=== PATIENT | male | born 1940 | race Caucasian/White ===

== ENCOUNTER 2018-08-03 23:01 | Inpatient (IN) | payer OTHER ==
[~2018-08-03] VITALS: Ht 172.7 cm; Wt 77.6 kg
[~2018-08-03 23:01] MED LIST: DUONEB3 ML HHN; PREDNISONE10 M2 PO; Z.0.ASPIR 8181 MG PO; Z.0.COREG3.125 MG PO; Z.0.LIPITOR10 MG PO; Z.0.PLAVIX75 MG PO; Z.0.TOPROL XL25 MG PO; Z.0.VASOTEC5 MG PO; [UNRECOGNIZED DRUG - REMARK]
--- OUTSIDE RECORDS SUMMARY | 2018-08-03 23:04 | XMS REPORT | Summary of Care ---
Author Author [facility] [place] Organization [facility] [place] Address Unknown Phone Unavailable Encounter HQ Barbarantr_aliney(FIN) [id number] Date(s): 12/06/17 - 12/06/17 [facility] [place] [address] [address]- [phone] Encounter Diagnosis Shortness of breath (Final) - 12/10/17 Discharge Disposition: Home or Self Care Attending Physician: Tom Smith MD Vital Signs No data available for this section Problem List Condition Effective Dates Status Health Status Informant Angina(Confirmed) Active Chronic systolic Active heart failure(Confirmed) Hypercholesteremia(C Active onfirmed) SOB (shortness of Active breath) on exertion(Confirmed) Allergies, Adverse Reactions, Alerts Substance Reaction Severity Status NKDA Active Medications No data available for this section Results No data available for this section Immunizations No data available for this section Procedures Procedure Date Related Diagnosis Body Site Status Appendectomy Completed CABG x 3 - Coronary artery bypass grafts x 3 Completed Carotid endarterectomy Completed Implantation of cardiac pacemaker Completed Social History Social History Type Response Alcohol Current, Type Beer. Frequency: 1-2 times per month. Previous treatment: None. Alcohol use interferes with work or home: No. Drinks more than intended: No. Others hurt by drinking: No. Ready to change: No. Household alcohol concerns: No. Smoking Status Former smoker; Type: Cigarettes; Exposure to Tobacco Smoke None; Cigarette Smoking Last 365 Days Yes; Reg Smoking Cessation Counseling No; Other Tobacco Frequency Pt. quit 10/07/17. OBEY Ramirez; entered on: 02/21/18 Assessment and Plan No data available for this section
--- OUTSIDE RECORDS SUMMARY | 2018-08-03 23:04 | XMS REPORT | Continuity of Care Document ---
Author Author [facility] Interface Address Unknown Phone Unavailable Problems Problem Status Onset Date Classification Date Reported Comments Source AV NODE ABLATION Active 02/08/2018 [facility] UNK Active 01/18/2018 [facility] Shortness of breath 12/11/2017 03/14/2018 [facility] [place] K52.9 - NONINFECTIVE GASTROENTERITIS A Active 11/12/2016 [facility] [place] 428.22/426.52/414.02 Active 05/30/2014 [facility] Angina Active Problem 03/14/2018 [facility] Chronic systolic heart failure Active Problem 03/14/2018 [facility] Hypercholesteremia Active Problem 03/14/2018 [facility] SOB on exertion(<span ID="[id number]">Confirmed</span>) Active Problem 03/14/2018 [facility] Medications Medication Details Route Status Patient Instructions Ordering Provider Order Date Source atorvastatin 10 mg, PO, Daily, 0 Refill(s) Active 02/21/2018 [facility] atorvastatin 10 mg oral tablet 10 mg=1 tab, PO, Daily, 0 Refill(s) Inactive 02/21/2018 [facility] Allergies, Adverse Reactions, Alerts Substance Category Reaction Severity Reaction type Status Date Reported Comments Source Immunizations Immunization Date Given Site Status Last Updated Comments Source Results Order Name Results Value Reference Range Date Interpretation Comments Source ELECTROLYTES AGAP 14.8 meq/L 10.0 - 20.0 02/18/2018 [facility] ELECTROLYTES eGFR 33 mL/min/1.73m2 02/18/2018 Result Comment: The eGFR is calculated using the CKD-EPI formula. In most young, healthy individuals the eGFR will be >90 mL/min/1.73m2. The eGFR declines with age. An eGFR of 60-89 may be normal in some populations, particularly the elderly, for whom the CKD-EPI formula has not been extensively validated. Use of the eGFR is not recommended in the following populations: Individuals with unstable creatinine concentrations, including patients and those with serious co-morbid conditions. Patients with extremes in muscle mass or diet. The data above are obtained from the National Kidney Disease Education Program (NKDEP) which additionally recommends that when the eGFR is used in patients with extremes of body mass index for purposes of drug dosing, the eGFR should be multiplied by the estimated BMI. [facility] ELECTROLYTES Glucose Lvl 112 mg/dL 70 - 99 02/18/2018 [facility] ELECTROLYTES CO2 28 meq/L 24 - 32 02/18/2018 [facility] ELECTROLYTES Chloride Lvl 98 meq/L 95 - 109 02/18/2018 [facility] ELECTROLYTES Creatinine Lvl 1.91 mg/dL 0.50 - 1.40 02/18/2018 [facility] ELECTROLYTES BUN 29 mg/dL 7 - 22 02/18/2018 [facility] ELECTROLYTES Potassium Lvl 3.8 meq/L 3.5 - 5.1 02/18/2018 [facility] ELECTROLYTES Sodium Lvl 137 meq/L 135 - 145 02/18/2018 [facility] ELECTROLYTES Calcium Lvl 9.2 mg/dL 8.5 - 10.5 02/18/[address] [facility] WBC 7.3 K/CMM 3.7 - 10.4 02/18/[address] [facility] MCV 89.0 fL 80.0 - 94.0 02/18/[address] [facility] RBC 4.13 M/CMM 4.70 - 6.10 02/18/[address] [facility] Hct 36.8 % 42.0 - 54.0 02/18/[address] [facility] Hgb 12.2 g/dL 14.0 - 18.0 02/18/[address] [facility] MPV 7.9 fL 7.4 - 10.4 02/18/[address] [facility] Platelet 156 K/CMM 133 - 450 02/18/[address] [facility] MCH 29.5 pg 27.0 - 31.0 02/18/[address] [facility] RDW 18.6 % 11.5 - 14.5 02/18/[address] [facility] MCHC 33.1 g/dL 32.0 - 36.0 02/18/[address] [facility] PTT 33.3 s 22.9 - 35.8 02/18/[address] [facility] PT 15.7 s 12.0 - 14.7 02/18/[address] [facility] INR 1.24 0.85 - 1.17 02/18/[address] [facility] Monocytes # 0.8 K/CMM 0.0 - 0.8 02/18/2018 [facility] HEMATOLOGY Eosinophils # 0.1 K/CMM 0.0 - 0.5 02/18/[address] [facility] Basophils # 0.1 K/CMM 0.0 - 0.2 02/18/2018 [facility] HEMATOLOGY Lymphocytes # 1.9 K/CMM 1.0 - 5.5 02/18/[address] [facility] Basophils 1.0 % 0.0 - 1.0 02/18/[address] [facility] Segs-Bands # 4.5 K/CMM 1.5 - 8.1 02/18/[address] [facility] Monocytes 10.4 % 2.0 - 12.0 02/18/[address] [facility] Eosinophils 1.2 % 0.0 - 4.0 02/18/[address] [facility] Lymphocytes 25.7 % 20.0 - 40.0 02/18/[address] [facility] Segs 61.7 % 45.0 - 75.0 02/18/2018 [facility] Chest 2 views DX Chest 2 views DX EXAM: Chest 2 views DX HISTORY: - R06.02 Shortness of breath COMPARISON: 06/08/2014 There are increased interstitial markings in the lung bases. No dense consolidation, effusion or pneumothorax. Cardiomegaly with pacing leads, median sternotomy and CABG again noted. No acute osseous lesion. IMPRESSION: Since 2013, there has been development of increased interstitial markings in the lung bases which could indicate developing interstitial lung disease. Consider pulmonary function tests and high-resolution chest CT for further evaluation if clinically appropriate. 12/06/2017 - - Read by: Zena Mendoza MD Dictated Date/time: 12/06/17 14:36 Electronically Signed by: Zena Mendoza MD 12/06/17 14:37 FINAL REPORT [facility] [place] Spine lumbar 2 or 3 views DX Spine lumbar 2 or 3 views DX CLINICAL HISTORY: - M47.817 Spondylosis without myelopathy or radiculopathy, lumbosacral region AGE: 76 years GENDER: Male TECHNIQUE: Lumbar spine radiographs, 2 views. COMPARISON: None FINDINGS: The L1 vertebral body is defined as the first non-rib bearing lumbar type vertebral body. There are 5 lumbar type vertebral bodies. There is grade 1 anterolisthesis of L5 on S1.. There is moderate to severe degenerative disc disease in the lumbar spine, at L4-L5 and L5-S1.. Suspected severe facet arthropathy in the lower lumbar spine. Vascular calcification is seen in the abdominal aorta. IMPRESSION: Moderate degenerative disc disease in the lower lumbar spine, worst at L4-L5. Grade 1 anterolisthesis of L5 on S1. 04/08/2017 - - Read by: Watson Fletcher MD Dictated Date/time: 04/08/17 18:42 Electronically Signed by: Watson Fletcher MD 04/08/17 18:43 FINAL REPORT EVIE Espinoza Spine sacrum AP/Lat DX Spine sacrum AP/Lat DX CLINICAL HISTORY: - M47.817 Spondylosis without myelopathy or radiculopathy, lumbosacral region AGE: 76 years GENDER: Male TECHNIQUE: Sacrum radiographs, 2 views. COMPARISON: None FINDINGS: No evidence of sacral fracture. No significant sacroiliac joint fusion, or erosion. Mild subchondral sclerosis is seen in the left SI joint. Surgical clips project over the right groin. IMPRESSION: Mild degenerative changes in the left sacroiliac joint. No evidence of sacral fracture. 04/08/2017 - - Read by: Watson Fletcher MD Dictated Date/time: 04/08/17 18:38 Electronically Signed by: Watson Fletcher MD 04/08/17 18:40 FINAL REPORT EVIE Espinoza Abdomen/Pelvis w IV contrast CT Abdomen/Pelvis w IV contrast CT EXAM: CT ABDOMEN AND PELVIS WITH CONTRAST DATE:11/19/2016 9:09 AM LAB REP . ADDITIONAL DATA: None COMPARISON: None Dose: DLP 1281 mGy-cm TECHNIQUE: CT of the abdomen and pelvis with intravenous contrast. Multiplanar reformats. IV CONTRAST: 75 mL Visipaque 320 GI CONTRAST: Oral FINDINGS: Lung bases: Dependent atelectasis or scarring. Liver: Within normal limits. Spleen: Within normal limits. Adrenal glands: Within normal limits. Gallbladder/biliary: Small layering gallstones. No biliary dilatation. Kidneys: Mild cortical thinning. Otherwise unremarkable. Normal excretion Pancreas: Within normal limits GI tract: Scattered large bowel diverticulosis without diverticulitis. There is minimal mucosal thickening in the right colon and splenic flexure. There is no adjacent inflammation. No appendix is identified. There are no pericecal inflammatory changes. The terminal ileum, proximal small bowel, stomach, and GE junction are unremarkable. Lymph nodes: Within normal limits. Urinary bladder: Within normal limits. Reproductive structures: Within normal limits. Regional skeleton: Mild lumbar spine degenerative changes Aorta: Calcified atherosclerosis. No branch ostial stenosis. IMPRESSION: 1. Mild thickening of the hepatic flexure may represent underdistention versus focal colitis, likely chronic. 2. No small bowel abnormality 3. Please see additional comments above 11/19/2016 - - Read by: Javan Larkin MD Dictated Date/time: 11/19/16 16:14 Electronically Signed by: Javan Larkin MD 11/19/16 16:18 FINAL REPORT MARK Espinoza Chest 2 views Chest 2 views EXAM: Chest 2 views DATE: Jun 08, 2014 07:30:00 AM INDICATION: Heart failure COMPARISON: Chest x-ray 06/07/2014. TECHNIQUE: PA and lateral chest radiographs. FINDINGS: A 3-lead left subclavian AICD pacemaker is seen with its lead tips in the right ventricle, coronary sinus, and right atrium. CABG dejon and sternotomy wires are present. No pneumothorax or pleural effusion is seen. The lungs are clear. The heart is not enlarged. No acute skeletal abnormality is seen. IMPRESSION: No significant interval change compared to 06/07/2014. SL: 06/08/2014 - - Read by: Mindi Haney MD Dictated Date/time: 06/08/14 08:20 Electronically Signed by: Mindi Haney MD 06/08/14 08:22 FINAL REPORT [facility] Chest 1view Chest 1view Chest one view: COMPARISON: No priors FINDINGS: Limited AP portable study. Multilead left subclavian ICD is noted to be in place. There is partial obscuration of the left apex secondary to the ICD, but no definite pneumothorax is visualized. Mild emphysematous change is present in both lungs. No consolidation or effusion. Cardiac silhouette size is within normal limits. Poststernotomy changes. Various EKG leads and wires project over the patient's chest. SL:06/07/2014 - - Read by: Doron Herrera MD Dictated Date/time: 06/07/14 15:47 Electronically Signed by: Doron Herrera MD 06/07/14 15:49 FINAL REPORT [facility] Vital Signs Vital Sign Value Date Comments Source Systolic (mm Hg) 132 02/21/2018 [facility] Diastolic (mm Hg) 77 02/21/2018 [facility] BMI Calculated 26.21 02/18/2018 [facility] Weight 78.182 02/18/2018 [facility] Height 172.72 cm 02/18/2018 [facility] Encounters Location Location Details Encounter Type Encounter Number Reason For Visit Attending Provider ADM Date DC Date Status Source [facility] [place] [facility] [id number] Tom Smith 11/19/2016 11/20/2016 [facility] [place] [facility] [place] [facility] [id number] Tom Smith 04/08/2017 04/09/2017 [facility] [place] [facility] [place] [facility] [id number] Tom Smith 12/06/2017 12/07/2017 [facility] [id number] Areli Diop 02/21/2018 02/21/2018 [facility] Procedures Procedure Code Date Perfomer Comments Source Appendectomy [id number] [facility] [place] CABG x 3 - Coronary artery bypass grafts x 3 [id number] [facility] [place] Carotid endarterectomy [id number] [facility] [place] Implantation of cardiac pacemaker [id number] [facility] [place] Appendectomy [id number] [facility] CABG x 3 - Coronary artery bypass grafts x 3 [id number] [facility] Carotid endarterectomy [id number] [facility] Implantation of cardiac pacemaker [id number] [facility]
--- OUTSIDE RECORDS SUMMARY | 2018-08-03 23:04 | XMS REPORT | Summary of Care ---
Author Author [facility] Organization [facility] Address Unknown Phone Unavailable Encounter BECKY Wood(BONNY) [id number] Date(s): 02/21/18 - 02/21/18 [facility] [address] [place] [address]- Discharge Disposition: Home or Self Care Attending Physician: Areli Diop MD Referring Physician: Areli Diop MD Vital Signs Most recent to 1 oldest [Reference Range]: Height 172.72 cm (02/18/18 1:05 PM) Blood Pressure 132/77 mmHg [90-140/60-90 mmHg] (02/21/18 1:33 PM) Weight 78.182 kg (02/18/18 1:05 PM) Body Mass Index 26.21 m2 (02/18/18 1:05 PM) Problem List Condition Effective Dates Status Health Status Informant Angina(Confirmed) Active Chronic systolic Active heart failure(Confirmed) Hypercholesteremia(C Active onfirmed) SOB (shortness of Active breath) on exertion(Confirmed) Allergies, Adverse Reactions, Alerts Substance Reaction Severity Status NKDA Active Medications atorvastatin 10 mg, PO, Daily, 0 Refill(s) Start Date: 02/21/18 Status: Ordered atorvastatin 10 mg oral tablet 10 mg=1 tab, PO, Daily, 0 Refill(s) Start Date: 02/21/18 Stop Date: 02/21/18 Status: Discontinued Results ELECTROLYTES Most recent to 1 oldest [Reference Range]: Sodium Lvl [135-145 137 mEq/L mEq/L] (02/18/18 1:12 PM) Potassium Lvl 3.8 mEq/L [3.5-5.1 mEq/L] (02/18/18 1:12 PM) Chloride Lvl [95-109 98 mEq/L mEq/L] (02/18/18 1:12 PM) CO2 [24-32 mEq/L] 28 mEq/L (02/18/18 1:12 PM) AGAP [10.0-20.0 14.8 mEq/L mEq/L] (02/18/18 1:12 PM) CHEM PANEL Most recent to 1 oldest [Reference Range]: Creatinine Lvl 1.91 mg/dL [0.50-1.40 mg/dL] *HI* (02/18/18 1:12 PM) eGFR 33 mL/min/1.73m2 1 *NA* (02/18/18 1:12 PM) BUN [7-22 mg/dL] 29 mg/dL *HI* (02/18/18 1:12 PM) Glucose Lvl [70-99 112 mg/dL mg/dL] *HI* (02/18/18 1:12 PM) Calcium Lvl 9.2 mg/dL [8.5-10.5 mg/dL] (02/18/18 1:12 PM) 1Result Comment: The eGFR is calculated using the [...] from the National Kidney Disease Education Program ( NKDEP) which additionally recommends that when the eGFR is used in patients with extremes of body mass index for purposes of drug dosing, the eGFR should be mul tiplied by the estimated BMI. HEMATOLOGY Most recent to 1 oldest [Reference Range]: WBC [3.7-10.4 K/CMM] 7.3 K/CMM (02/18/18 1:12 PM) RBC [4.70-6.10 4.13 M/CMM M/CMM] *LOW* (02/18/18 1:12 PM) Hgb [14.0-18.0 g/dL] 12.2 g/dL *LOW* (02/18/18 1:12 PM) Hct [42.0-54.0 %] 36.8 % *LOW* (02/18/18 1:12 PM) MCV [80.0-94.0 fL] 89.0 fL (02/18/18 1:12 PM) MCH [27.0-31.0 pg] 29.5 pg (02/18/18 1:12 PM) MCHC [32.0-36.0 33.1 g/dL g/dL] (02/18/18 1:12 PM) RDW [11.5-14.5 %] 18.6 % *HI* (02/18/18 1:12 PM) MPV [7.4-10.4 fL] 7.9 fL (02/18/18 1:12 PM) Platelet [133-450 156 K/CMM K/CMM] (02/18/18 1:12 PM) Segs [45.0-75.0 %] 61.7 % (02/18/18 1:12 PM) Lymphocytes 25.7 % [20.0-40.0 %] (02/18/18 1:12 PM) Monocytes [2.0-12.0 10.4 % %] (02/18/18 1:12 PM) Eosinophils [0.0-4.0 1.2 % %] (02/18/18 1:12 PM) Basophils [0.0-1.0 1.0 % %] (02/18/18 1:12 PM) Segs-Bands # 4.5 K/CMM [1.5-8.1 K/CMM] (02/18/18 1:12 PM) Lymphocytes # 1.9 K/CMM [1.0-5.5 K/CMM] (02/18/18 1:12 PM) Monocytes # [0.0-0.8 0.8 K/CMM K/CMM] (02/18/18 1:12 PM) Eosinophils # 0.1 K/CMM [0.0-0.5 K/CMM] (02/18/18 1:12 PM) Basophils # [0.0-0.2 0.1 K/CMM K/CMM] (5/18/18 1:12 PM) PT [12.0-14.7 15.7 seconds seconds] *HI* (02/18/18 1:12 PM) INR [0.85-1.17] 1.24 *HI* (02/18/18 1:12 PM) PTT [22.9-35.8 33.3 seconds seconds] (02/18/18 1:12 PM) Immunizations No data available for this section [...]
--- OUTSIDE RECORDS SUMMARY | 2018-08-03 23:04 | XMS REPORT | Summary of Care ---
Author Author [facility] [place] Organization [facility] [place] Address Unknown Phone Unavailable Encounter HQ [place](FIN) [id number] Date(s): 04/08/17 - 04/08/17 [facility] [place] [address] [address] [phone] Discharge Disposition: Home or Self Care Attending [...] Procedures Procedure Date Related Diagnosis Body Site Appendectomy CABG x 3 - Coronary artery bypass grafts x 3 Carotid endarterectomy Social History Social History Type Response Alcohol Current, Type Beer. Frequency: 1-2 times per month. Previous treatment: None. Alcohol use interferes with work or home: No. Drinks more than intended: No. Others hurt by drinking: No. Ready to change: No. Household alcohol concerns: No. Smoking Status Former smoker; Type: Cigarettes; Exposure to Tobacco Smoke None; Cigarette Smoking Last 365 Days No; Reg Smoking Cessation Counseling No Assessment and Plan No data available for this section
--- OUTSIDE RECORDS SUMMARY | 2018-08-03 23:04 | XMS REPORT | Summary of Care ---
Author Author [facility] [place] Organization [facility] [place] Address Unknown Phone Unavailable Encounter BECKY Wood(BONNY) [id number] Date(s): 11/19/16 - 11/19/16 [facility] [place] [address] [place] [address] [phone] Discharge Disposition: Home or Self Care Attending [...]
[2018-08-03] MEDS ORDERED: SODIUM CHLORIDE 0.9% 1000ML 1,000 ML IV STA (23:46)
[2018-08-04] MEDS ORDERED: TETANUS/DIPHTHERIA TOX ADULT 0.5 ML SYR IM ONE (00:15)
[2018-08-04 00:26] LABS: BASOPHILS # (AUTO) 0.1 (0.0-0.1); BASOPHILS % 0.6 % (0.0-1.0); EOSINOPHILS # (AUTO) 0.1 (0.0-0.4); EOSINOPHILS % 1.3 % (0.0-6.0); HEMATOCRIT 27.1 % (38.2-49.6); HEMOGLOBIN 8.1 g/dL (14.0-18.0); LYMPHOCYTES # (AUTO) 2.2 (1.0-3.2); LYMPHOCYTES % 26.5 % (18.0-39.1); MEAN CORPUSCULAR HEMOGLOBIN 24.4 pg (28-32); MEAN CORPUSCULAR HGB CONC 29.9 g/dL (31-35); MEAN CORPUSCULAR VOLUME 81.6 fL (81-99); MONOCYTES # (AUTO) 0.9 (0.2-0.8); MONOCYTES % 10.8 % (4.4-11.3); NEUTROPHILS # (AUTO) 5.1 (2.1-6.9); NEUTROPHILS % 60.3 % (38.7-80.0); PLATELET COUNT 156 x10e3/uL (140-360); RED BLOOD COUNT 3.32 x10e6/uL (4.3-5.7)
[2018-08-04 00:31] LABS: INR 1.48; PROTHROMBIN TIME 19.2 seconds (11.9-14.5)
[2018-08-04 00:32] LABS: PARTIAL THROMBOPLASTIN TIME 40.5 seconds (23.8-35.5)
[2018-08-04 00:54] LABS: ALBUMIN 3.9 g/dL (3.5-5.0); ALBUMIN/GLOBULIN RATIO 1.3 (0.8-2.0); ANION GAP 19.9 mmol/L (8-16); CALCIUM 9.4 mg/dL (8.4-10.2); CREATININE, SERUM 1.96 mg/dL (0.72-1.25); POTASSIUM 3.9 mmol/L (3.5-5.1)
--- NOTE | 2018-08-04 00:55 | Diagnostic Imaging Report ---
Examination: CT head without contrast Clinical Indication: Fall; head injury. Technique: Transaxial noncontrast images from the skull base through the vertex were obtained. Sagittal and coronal reformatted images were done. Dose modulation, iterative reconstruction, and/or weight based adjustment of the mA/kV was utilized to reduce the radiation dose to as low as reasonably achievable. Comparison: None. Findings: Scalp: Small midline frontal scalp hematoma. Bones: Intact. No fractures. No blastic or lytic lesions. Brain sulci: Mild volume loss for patient's age. Ventricles: No hydrocephalus. Extra-axial space: No abnormalities. Parenchyma: There are mild confluent areas of low-attenuation within subcortical and periventricular white matter, nonspecific, but could represent microvascular ischemic disease. No masses, hemorrhage, or acute or chronic cortical based vascular insults. Suprasellar region: No abnormalities. Craniocervical junction: The foramen magnum is patent. No Chiari one malformation. Incidental findings: Atherosclerotic calcification of the cavernous and supraclinoid internal carotid arteries. Impression: 1. Small midline frontal scalp hematoma. 2. No acute intracranial finding. 3. Mild chronic microvascular ischemic change and volume loss. Signed by: Dr. Lavonne Salgado M.D. on 08/04/2018 12:52 AM
[2018-08-04] MEDS ORDERED: BACITRACIN ZINC 0.9GM TP ONE ×2 (01:02→06:00)
[2018-08-04 01:03] LABS: CREATINE KINASE MB 2.2 ng/mL (0-5.0)
--- NOTE | 2018-08-04 01:06 | Diagnostic Imaging Report ---
EXAM: CHEST SINGLE (PORTABLE), AP 1 view INDICATION: Fall, left posterior hand laceration COMPARISON: None FINDINGS: LINES/TUBES: Left approach triple lead cardiac device. External pacer wires. Median sternotomy wires and mediastinal clips. LUNGS: Bibasilar airspace opacities, right greater than left. PLEURA: No effusions or pneumothorax. HEART AND MEDIASTINUM: Within normal size limits for technique. BONES AND SOFT TISSUES: No acute findings. IMPRESSION: Bibasilar airspace opacities, right greater than left. The differential includes atelectasis, pneumonia or aspiration. Consider upright PA and lateral view of the chest when clinically feasible. Signed by: Dr. Lula Gilliland M.D. on 08/04/2018 1:03 AM
--- NOTE | 2018-08-04 01:08 | Diagnostic Imaging Report ---
EXAM: HAND 3+ VIEWS LEFT, WRIST COMPLETE LEFT, AP, lateral and oblique INDICATION: Fall, hand laceration COMPARISON: None FINDINGS: BONES: Age indeterminant avulsion off the ulnar styloid process. JOINTS: No malalignment. Incidental fusion of the lunate and triquetrum. SOFT TISSUES: Normal IMPRESSION: Age-indeterminate, likely chronic small avulsion off the ulnar styloid process. No radiopaque foreign bodies. Signed by: Dr. Lula Gilliland M.D. on 08/04/2018 1:05 AM
[2018-08-04] MEDS ORDERED: FUROSEMIDE40 MG PO (01:52)
[2018-08-04] MEDS ORDERED: CARVEDILOL12.5 MG PO (01:52)
[2018-08-04] MEDS ORDERED: eliquis PO (01:52)
[2018-08-04] MEDS ORDERED: VASOTEC5 MG PO (01:52)
[2018-08-04] MEDS ORDERED: PIPERACILLIN/TAZO 2.25 GM 50 ML IV STA (02:44)
[2018-08-04] MEDS ORDERED: ACETAMINOPHEN 325 MG TAB PO ONE (02:45)
[2018-08-04] MEDS ORDERED: PANTOPRAZOLE 40 MG 10ML VIAL IV STA (02:46)
[2018-08-04] MEDS ORDERED: MULTIVITAMINS- 12 INJECTION 10 ML, FOLIC ACID MDV 5 MG, THIAMINE HCL INJ 100 MG in SODI... IV ONE ×2 (03:00→22:00)
[2018-08-04] MEDS ORDERED: SODIUM CHLORIDE 0.9% 250ML 250 ML IV ONE (03:00)
[2018-08-04] MEDS: PANTOPRAZOLE INJ 40 MG in SODIUM CHLORIDE 0.9% 50ML 50 ML IV SCH ×3 (03:30→13:28)
[2018-08-04 03:33] LABS: CLARITY,URINE CLEAR (CLEAR); COLOR,URINE YELLOW (YELLOW)
[2018-08-04 03:34] LABS: BILIRUBIN,URINE NEGATIVE (NEGATIVE); KETONES,URINE NEGATIVE (NEGATIVE); LEUKOCYTE ESTERASE ,URINE NEGATIVE (NEGATIVE); NITRITE,URINE NEGATIVE (NEGATIVE); PROTEIN,URINE DIPSTICK NEGATIVE (NEGATIVE); URINE UROBILINOGEN 0.2 mg/dL (0.2 - 1)
[2018-08-04 03:42] LABS: RBC,URINE 0-5 /HPF (0-5); WBC,URINE (MAN) 0-5 /HPF (0-5)
[2018-08-04 03:43] LABS: BACTERIA,URINE RARE /HPF; EPITHELIAL CELLS,URINE RARE /LPF
--- NOTE | 2018-08-04 03:50 | Diagnostic Imaging Report ---
Examination: CT CERVICAL SPINE WITHOUT CONTRAST HISTORY:Neck injury from fall. COMPARISON:None. TECHNIQUE: Multidetector helical axial images were obtained without contrast from the foramen magnum to T1. Coronal and sagittal reformatted images were done. Bone and soft tissue windows were evaluated. Dose modulation, iterative reconstruction, and/or weight based adjustment of the mA/kV was utilized to reduce the radiation dose to as low as reasonably achievable. FINDINGS: Alignment:Normal alignment with straightening of normal lordosis. Vertebrae: Normal height and density. No acute fracture, infection or neoplasm. Disc space heights: Normal height. Caliber of spinal canal: Developmentally normal. Posterior fossa and craniocervical junction: Foramen magnum patent. No Chiari 1 malformation. Soft tissues: Atherosclerotic calcification of the bilateral carotid bifurcations. A few surgical clips in the left neck a the level of the hyoid bone. Degenerative changes: Anterior osteophyte from C4 through C7. Severe joint space narrowing at C1-C2. No disc bulge/ herniation or canal stenosis. IMPRESSION: No acute abnormalities. Signed by: Dr. Lavonne Salgado M.D. on 08/04/2018 3:47 AM
[2018-08-04] MEDS ORDERED: PANTOPRAZOLE INJ 80 MG in SODIUM CHLORIDE 0.9% 100 ML IV SCH (06:00)
[2018-08-04] MEDS: PANTOPRAZOL 40MG/SOD CHL 0.9% 50 ML IV SCH ×4 (06:32→21:00)
--- OUTSIDE RECORDS SUMMARY | 2018-08-04 07:03 | XMS REPORT ---
Author Author [facility] Address Unknown Phone Unavailable Care Team Providers Care Beam Department Supervisor Name Role Phone Eliot MARTINEZ Unavailable Unavailable Problems This patient has no known problems. Allergies, Adverse Reactions, Alerts This patient has no known allergies or adverse reactions. Medications This patient has no known medications. Results Test Description Test Time Test Comments Text Results Atomic Results Result Comments CT CERVICAL SPINE WO 2018-08-04 03:42:00 [facility] [address] [address] Patient Name: CLEMENTE BOURGEOIS JR MR #: [id number] : 1940 Age/Sex: 78/M Req #: [id number] Adm Physician: Ordered by: CAMPOS MARTINEZ MD Report #: [id number] Location: ER Room/Bed: Procedure: [id number] CT/CT CERVICAL SPINE WO Exam Date: 08/04/18 Exam Time: 0240 REPORT STATUS: Signed Examination: CT CERVICAL SPINE WITHOUT CONTRAST HISTORY:Neck injury from fall. COMPARISON:None. TECHNIQUE: Multidetector helical axial images were obtained without contrast from the foramen magnum to T1. Coronal and sagittal reformatted images were done. Bone and soft tissue windows were evaluated. Dose modulation, iterative reconstruction, and/or weight based adjustment of the mA/kV was utilized to reduce the radiation dose to as low as reasonably achievable. FINDINGS: Alignment:Normal alignment with straightening of normal lordosis. Vertebrae: Normal height and density. No acute fracture, infection or neoplasm. Disc space heights: Normal height. Caliber of spinal canal: Developmentally normal. Posterior fossa and craniocervical junction: Foramen magnum patent. No Chiari 1 malformation. Soft tissues: Atherosclerotic calcification of the bilateral carotid bifurcations. A few surgical clips in the left neck a the level of the hyoid bone. Degenerative changes: Anterior osteophyte from C4 through C7. Severe joint space narrowing at C1-C2. No disc bulge/ herniation or canal stenosis. IMPRESSION: No acute abnormalities. Signed by: Dr. Lavonne Salgado M.D. on 08/04/2018 3:47 AM Dictated By: LAVONNE MCKEON MD 6 Transcribed By: MONIQUE on 08/04/18346 COPY TO: CAMPOS MARTINEZ MD WRIST COMPLETE LEFT 2018-08-04 01:03:00 [address] [address] Patient Name: CLEMENTE BOURGEOIS JR MR #: [id number] : 1940 Age/Sex: 78/M Req #: [id number] [facility] Physician: Ordered by: CAMPOS MARTINEZ MD Report #: [id number] Location: ER Room/Bed: Procedure: [id number] DX/WRIST COMPLETE LEFT Exam Date: 08/04/18 Exam Time: 0015 REPORT STATUS: Signed EXAM: HAND 3+ VIEWS LEFT, WRIST COMPLETE LEFT, AP, lateral and oblique INDICATION: Fall, hand laceration COMPARISON: None FINDINGS: BONES: Age indeterminant avulsion off the ulnar styloid process. JOINTS: No malalignment. Incidental fusion of the lunate and triquetrum. SOFT TISSUES: Normal IMPRESSION: Age-indeterminate, likely chronic small avulsion off the ulnar styloid process. No radiopaque foreign bodies. Signed by: Dr. Karly Gilliland M.D. on 08/04/2018 1:05 AM Dictated By: KARLY GILLILAND MD 4 Transcribed By: MONIQUE on 08/04/18104 COPY TO: CAMPOS MARTINEZ MD HAND 3+ VIEWS LEFT 2018-08-04 01:03:00 [address] [place] [address] Patient Name: CLEMENTE BOURGEOIS JR MR #: [id number] : 1940 Age/Sex: 78/M Req #: [id number] Adm Physician: Ordered by: CAMPOS MARTINEZ MD Report #: [id number] Location: ER Room/Bed: Procedure: [id number] DX/HAND 3+ VIEWS LEFT Exam Date: 08/04/18 Exam Time: 0020 REPORT STATUS: Signed EXAM: HAND 3+ VIEWS LEFT, WRIST COMPLETE LEFT, AP, lateral and oblique INDICATION: Fall, hand laceration COMPARISON: None FINDINGS: BONES: Age indeterminant avulsion off the ulnar styloid process. JOINTS: No malalignment. Incidental fusion of the lunate and triquetrum. SOFT TISSUES: Normal IMPRESSION: Age-indeterminate, likely chronic small avulsion off the ulnar styloid process. No radiopaque foreign bodies. Signed by: Dr. Karly Gilliland M.D. on 08/04/2018 1:05 AM Dictated By: KARLY GILLILAND MD 4 Transcribed By: MONIQUE on 08/04/18104 COPY TO: CAMPOS MARTINEZ MD CHEST SINGLE (PORTABLE) 2018-08-04 01:00:00 [address] [place] [address] Patient Name: CLEMENTE BOURGEOIS JR MR #: [id number] : 1940 Age/Sex: 78/M Req #: [id number] Adm Physician: Ordered by: CAMPOS MARTINEZ MD Report #: [id number] Location: ER Room/Bed: Procedure: [id number] DX/CHEST SINGLE (PORTABLE) Exam Date: 08/04/18 Exam Time: 2359 REPORT STATUS: Signed EXAM: CHEST SINGLE (PORTABLE), AP 1 view INDICATION: Fall, left posterior hand laceration COMPARISON: None FINDINGS: LINES/TUBES: Left approach triple lead cardiac device. External pacer wires. Median sternotomy wires and mediastinal clips. LUNGS: Bibasilar airspace opacities, right greater than left. PLEURA: No effusions or pneumothorax. HEART AND MEDIASTINUM: Within normal size limits for technique. BONES AND SOFT TISSUES: No acute findings. IMPRESSION: Bibasilar airspace opacities, right greater than left. The differential includes atelectasis, pneumonia or aspiration. Consider upright PA and lateral view of the chest when clinically feasible. Signed by: Dr. Karly Gilliland M.D. on 08/04/2018 1:03 AM Dictated By: KARLY GILLILAND MD 2 Transcribed By: MONIQUE on 08/04/18102 COPY TO: CAMPOS MARTINEZ MD CT BRAIN WO 2018-08-04 00:49:[address] [place] [place] [address] Patient Name: CLEMENTE BOURGEOIS JR MR #: [id number] : 1940 Age/Sex: 78/M Req #: [id number] Adm Physician: Ordered by: CAMPOS MARTINEZ MD Report #: [id number] Location: ER Room/Bed: Procedure: [id number] CT/CT BRAIN WO Exam Date: 08/04/18 Exam Time: 2359 REPORT STATUS: Signed Examination: CT head without contrast Clinical Indication: Fall; head injury. Technique: Transaxial noncontrast images from the skull base through the vertex were obtained. Sagittal and coronal reformatted images were done. Dose modulation, iterative reconstruction, and/or weight based adjustment of the mA/kV was utilized to reduce the radiation dose to as low as reasonably achievable. Comparison: None. Findings: Scalp: Small midline frontal scalp hematoma. Bones: Intact. No fractures. No blastic or lytic lesions. Brain sulci: Mild volume loss for patient's age. Ventricles: No hydrocephalus. Extra-axial space: No abnormalities. Parenchyma: There are mild confluent areas of low-attenuation within subcortical and periventricular white matter, nonspecific, but could represent microvascular ischemic disease. No masses, hemorrhage, or acute or chronic cortical based vascular insults. Suprasellar region: No abnormalities. Craniocervical junction: The foramen magnum is patent. No Chiari one ma lformation. Incidental findings: Atherosclerotic calcification of the cavernous and supraclinoid internal carotid arteries. Impression: 1. Small midline frontal scalp hematoma. 2. No acute intracranial finding. 3. Mild chronic microvascular ischemic change and volume loss. Signed by: Dr. Lavonne Salgado M.D. on 08/04/2018 12:52 AM Dictated By: LAVONNE MCKEON MD Transcribed By: MONIQUE on 08/04/1851 COPY TO: CAMPOS MARTINEZ MD
[2018-08-04 07:54] LABS: HEMATOCRIT 18.3 % (38.2-49.6)
[2018-08-04 07:58] LABS: HEMOGLOBIN 5.5 g/dL (14.0-18.0)
[2018-08-04] MEDS ORDERED: SODIUM CHLORIDE 0.9% 250ML 250 ML ONE ×2 (08:46→16:21)
[2018-08-04] MEDS: D5.45%NS/KCL 20MEQ 1,000 ML IV SCH ×2 (08:55→21:00)
[2018-08-04 09:38] LABS: CREATINE KINASE MB 4.8 ng/mL (0-5.0)
[2018-08-04] MEDS: FUROSEMIDE INJ 10 MG/ML 2 ML VIAL IV SCH ×3 (12:10→20:36)
[2018-08-04] MEDS ORDERED: ALBUTEROL/IPRATROPIUM 3 ML NEB NEB PRN ×2 (14:15)
[2018-08-04 14:26] VITALS: BP 143/67
[2018-08-04 14:30] VITALS: BP 143/67
[2018-08-04 14:42] VITALS: BP 143/67
[2018-08-04 15:33] VITALS: BP 126/61
[2018-08-04 19:35] VITALS: BP 127/74
[2018-08-04 20:00] VITALS: BP 127/74
[2018-08-04] MEDS: ALBUTEROL/IPRATROPIUM 3 ML NEB NEB SCH (20:30)
[2018-08-05] VITALS (7 sets, daily range): BP systolic 116–164; BP diastolic 63–84
--- NOTE | 2018-08-05 00:10 | Consultation ---
DATE OF CONSULTATION: August 04, 2018 REFERRING PHYSICIAN: Dr. Bright Pierre. REASON FOR CONSULT: Severe anemia. HISTORY OF PRESENTING ILLNESS: A 78-year-old white male with a host of comorbidities such as coronary artery disease, status post pacemaker/AICD; atrial fibrillation, on Eliquis; alcohol dependency. He got intoxicated at home prior to coming to the hospital. He fell and sustained some bruises on his head. No intracranial injury. Patient was evaluated in the emergency room. Here, blood work revealed hemoglobin of 8.1. Last baseline hemoglobin was 13.5 on June 03, 2012. Patient subsequently regained consciousness with IV fluid hydration, banana bag. He had a rectal examination done and as per nurses his stool was brown but tested positive for occult blood. Repeat hemoglobin today dropped down further to 5.5. No gross GI bleeding such as hematemesis, elizabeth melena, or any hematochezia reported. He denies any nose bleed, hemoptysis, or hematuria. Patient is also on Plavix. He does not take any aspirin. Patient does not remember if he ever had any upper endoscopy or colonoscopy. REVIEW OF SYSTEMS: A 12-point system reviewed. Symptomatology is limited as per HPI. PAST MEDICAL HISTORY: Coronary artery disease, cardiac dysrhythmia, hypertension, and hyperlipidemia. PAST SURGICAL HISTORY: Coronary artery bypass surgery, left carotid endarterectomy, appendectomy, tonsillectomy, and left arm abscess I and D. FAMILY HISTORY: Noncontributory. Negative for any GI or [employer]OWER SW[employer] malignancies. SOCIAL HISTORY: Alcohol dependence, chronic smoker. ALLERGIES: NO KNOWN DRUG ALLERGIES. HOME MEDICATIONS 1. Albuterol/ipratropium inhaler. 2. Carvedilol 12.5 mg twice daily. 3. Clopidogrel 75 mg daily. 4. Enalapril 5 mg daily. 5. Furosemide 40 mg daily. 6. Eliquis 5 mg twice daily. Inpatient medication list is reviewed. Patient is not being given any Eliquis. PHYSICAL EXAMINATION VITAL SIGNS: Temperature 96.4, pulse 84, respirations 18, blood pressure 127/74, and oxygen saturation 94% on room air. GENERAL: Not in any acute distress at this time. Oral mucosa is moist. A bruise with a hematoma and laceration in the forehead covered with gauze. Conjunctival hemorrhage. Anicteric sclerae. CVS: S1, S2, irregularly irregular. Pacemaker/AICD in the left anterior chest wall. LUNGS: Occasional bibasilar rales. No rhonchi. ABDOMEN: Soft, palpable hepatomegaly 2 fingerbreadths below right subcostal margin. It is nontender. No shifting dullness appreciated. No other mass or hernia. Positive bowel sounds. EXTREMITIES: Trace bilateral leg edema. LABS: WBC 8.4; hemoglobin 8.1, repeat 5.5; hematocrit 27.1; MCV 81.6; and platelet count 156,000. Sodium 129, potassium 3.9, chloride 92, bicarb 21, BUN 22, creatinine 1.96, and glucose 146. Liver enzymes showed a total bilirubin 0.9, AST 23, ALT 15, and alkaline phosphatase 95. Blood alcohol level was 207.1. Urinalysis clear. PT 19.2, INR 1.48. Cervical spine CT scan showed no acute abnormalities. IMPRESSIONS 1. Severe anemia in a patient with alcohol dependence. 2. Hyponatremia. 3. Stool occult blood heme-positive. 4. There is suspicion for alcoholic liver cirrhosis. PLAN 1. Continue present medical management, IV fluid, banana bag. 2. Supplement thiamine folate. 3. Continue clear liquid diet. 4. Monitor stool. Watch for any gross GI bleeding. 5. I do not recommend any PPI infusion at this time. Continue PPI IV twice daily for GI prophylaxis. 6. NPO past midnight. 7. EGD tomorrow. Further recommendations based upon endoscopy findings. I thank Dr. Pierre for allowing me to participate in the care of this patient. Job#: [id number]
[2018-08-05] MEDS: ALBUTEROL/IPRATROPIUM 3 ML NEB NEB SCH ×4 (01:30→19:55)
[2018-08-05 02:14] LABS: HEMATOCRIT 33.5 % (38.2-49.6); HEMOGLOBIN 11.1 g/dL (14.0-18.0)
[2018-08-05 05:13] LABS: HEMATOCRIT 36.2 % (38.2-49.6); HEMOGLOBIN 11.5 g/dL (14.0-18.0)
[2018-08-05 07:35] LABS: CREATINE KINASE MB 3.8 ng/mL (0-5.0)
[2018-08-05] MEDS ORDERED: FUROSEMIDE INJ 10 MG/ML 4 ML VIAL IV NR (09:15)
[2018-08-05] MEDS ORDERED: CHLORDIAZEPOXIDE HCL 10 MG CAP PO PRN (09:15)
[2018-08-05] MEDS: CYANOCOBALAMIN 1,000 MCG TAB PO SCH (09:15)
[2018-08-05] MEDS: THIAMINE HCL 100 MG TAB PO SCH (09:30)
[2018-08-05] MEDS ORDERED: CEFAZOLIN SOD 1 GM/D5W 50ML 50 ML IV SCH (10:00)
[2018-08-05] MEDS: CEFAZOLIN SOD 1 GM VIAL IV SCH ×2 (11:14→22:36)
--- NOTE | 2018-08-05 11:42 | History and Physical ---
CHIEF COMPLAINT: Status post fall with facial hematoma and forehead laceration with bleed and acute blood loss anemia. SUMMARY: A 78-year-old male on Eliquis for his atrial fibrillation. The patient has history of coronary artery disease. He had history of bypass many years ago. Apparently, he got out during the night after spending time at the bar and came out the car and apparently tripped and fell on his face. He was brought into the emergency room. There, the patient has significant bleed. His forehead was bleeding and pressure was given for stopping the bleed. The patient did have hemoglobin drop down to 5.5. The patient did receive 2 units of blood transfusion. He is stable now. PAST MEDICAL HISTORY: Compensated congestive heart failure, hypertension, coronary artery disease with previous 3-vessel bypass surgery, congestive heart failure with cardiomyopathy, AICD, atrial fibrillation on anticoagulant therapy. SOCIAL HISTORY: Patient is a drinker, moderate daily. Patient does not smoke. No recreational drugs. ALLERGIES: NO KNOWN ALLERGIES. HOME MEDICATIONS: DuoNeb, Coreg, Plavix, Eliquis, Lasix, enalapril. REVIEW OF SYSTEMS: Headaches due to fall and laceration on the forehead with bleeding significantly subsided. PHYSICAL EXAMINATION VITAL SIGNS: Temperature is 97, blood pressure 164/84, pulse rate is 85, respirations 20. GENERAL: The patient is awake, alert, moving all extremities and no confusion. HEENT: Laceration on the forehead area with bleed, pressure wound, now stopped. NECK: Supple. PULMONARY: Clear. CARDIOVASCULAR: Atrial fibrillation, rate controlled. ABDOMEN: Soft. Positive bowel sounds. Nontender, no distention. EXTREMITIES: No cyanosis or edema. Multiple bruises. NEUROLOGIC: No focal deficit. Awake and alert, following commands. LABORATORY: Sodium was 129, potassium 3.9, chloride 92, bicarb 21, BUN 22, creatinine 1.9, glucose 146. Liver enzymes unremarkable. WBC was 8.4, hemoglobin 5.5, hematocrit 18.3, platelets are 156. IMAGING: Cervical spine CT, hands x-ray, wrist x-ray, brain CT, and chest x-ray otherwise unremarkable. IMPRESSION 1. Status post fall with acute blood loss anemia secondary to bleed in the forehead and multiple bruises secondary to taking Plavix and Eliquis for his cardiac disease. 2. Alcoholism with high alcohol level. 3. Multiple baseline problems as mentioned in the chronic medical history. PLAN: Continue to monitor patient closely. Repeat lab work. Patient will need endoscopy. We will continue to have wound care, PT/OT. Thiamine, B12, folic acid. Librium as needed. We will start the patient on Keflex for possible early infection due to fall and laceration to the forehead area. We will monitor the patient closely. The patient is admitted to the hospital for continued inpatient treatment. Job#: [id number] AILYN
[2018-08-05 18:55] LABS: HEMATOCRIT 34.3 % (38.2-49.6); HEMOGLOBIN 10.9 g/dL (14.0-18.0)
[2018-08-06] VITALS (8 sets, daily range): BP systolic 119–169; BP diastolic 59–87
[2018-08-06] MEDS: ALBUTEROL/IPRATROPIUM 3 ML NEB NEB SCH ×4 (00:30→19:30)
[2018-08-06 05:35] LABS: BASOPHILS % 0.4 % (0.0-1.0); EOSINOPHILS % 0.2 % (0.0-6.0); HEMATOCRIT 33.2 % (38.2-49.6); HEMOGLOBIN 10.7 g/dL (14.0-18.0); LYMPHOCYTES # (AUTO) 2.2 (1.0-3.2); MEAN CORPUSCULAR HGB CONC 32.2 g/dL (31-35); MEAN CORPUSCULAR VOLUME 80.8 fL (81-99); MONOCYTES # (AUTO) 1.3 (0.2-0.8); MONOCYTES % 12.9 % (4.4-11.3); NEUTROPHILS # (AUTO) 6.8 (2.1-6.9); NEUTROPHILS % 65.2 % (38.7-80.0); PLATELET COUNT 122 x10e3/uL (140-360); RED BLOOD COUNT 4.11 x10e6/uL (4.3-5.7)
[2018-08-06 05:58] LABS: ANION GAP 16.6 mmol/L (8-16); CALCIUM 9.4 mg/dL (8.4-10.2); CREATININE, SERUM 1.45 mg/dL (0.72-1.25); POTASSIUM 4.6 mmol/L (3.5-5.1)
[2018-08-06] MEDS: CYANOCOBALAMIN 1,000 MCG TAB PO SCH (09:18)
[2018-08-06] MEDS: FOLIC ACID 1 MG TAB PO SCH (09:18)
[2018-08-06] MEDS: THIAMINE HCL 100 MG TAB PO SCH (09:18)
[2018-08-06] MEDS: CEFAZOLIN SOD 1 GM VIAL IV SCH ×2 (09:25→22:34)
[2018-08-06] MEDS: MUPIROCIN 2% OINT 22 GM TUBE TOP SCH (10:41)
[2018-08-06 12:13] LABS: HEMATOCRIT 33.4 % (38.2-49.6); HEMOGLOBIN 10.7 g/dL (14.0-18.0)
[2018-08-07 00:08] VITALS: BP 132/69
[2018-08-07] MEDS: ALBUTEROL/IPRATROPIUM 3 ML NEB NEB SCH ×3 (01:00→13:00)
[2018-08-07 06:07] LABS: BASOPHILS # (AUTO) 0.1 (0.0-0.1); BASOPHILS % 0.6 % (0.0-1.0); EOSINOPHILS # (AUTO) 0.1 (0.0-0.4); HEMATOCRIT 32.8 % (38.2-49.6); HEMOGLOBIN 10.4 g/dL (14.0-18.0); LYMPHOCYTES # (AUTO) 1.6 (1.0-3.2); LYMPHOCYTES % 17.8 % (18.0-39.1); MEAN CORPUSCULAR HEMOGLOBIN 26.1 pg (28-32); MEAN CORPUSCULAR HGB CONC 31.7 g/dL (31-35); MEAN CORPUSCULAR VOLUME 82.4 fL (81-99); MONOCYTES # (AUTO) 1.2 (0.2-0.8); MONOCYTES % 13.1 % (4.4-11.3); NEUTROPHILS # (AUTO) 5.9 (2.1-6.9); NEUTROPHILS % 67.2 % (38.7-80.0); PLATELET COUNT 123 x10e3/uL (140-360); RED BLOOD COUNT 3.98 x10e6/uL (4.3-5.7); RED CELL DISTRIBUTION WIDTH 16.4 % (11.7-14.4)
[2018-08-07 06:13] VITALS: BP 137/69
[2018-08-07 06:26] LABS: ANION GAP 13.6 mmol/L (8-16); CALCIUM 9.5 mg/dL (8.4-10.2); CREATININE, SERUM 1.22 mg/dL (0.72-1.25); POTASSIUM 4.6 mmol/L (3.5-5.1)
[2018-08-07 08:03] VITALS: BP 137/71
[2018-08-07] MEDS: FOLIC ACID 1 MG TAB PO SCH (08:22)
[2018-08-07] MEDS: CYANOCOBALAMIN 1,000 MCG TAB PO SCH (08:22)
[2018-08-07] MEDS: THIAMINE HCL 100 MG TAB PO SCH (08:22)
[2018-08-07 09:15] VITALS: BP 160/90
[2018-08-07] MEDS: CEFAZOLIN SOD 1 GM VIAL IV SCH (10:47)
[2018-08-07] MEDS: MUPIROCIN 2% OINT 22 GM TUBE TOP SCH (10:47)
[2018-08-07 12:21] VITALS: BP 134/67
[2018-08-07 15:55] VITALS: BP 164/77
[2018-08-07] MEDS ORDERED: LIDOCAINE HCL 2% LOCAL INJ 5 ML SDV VIAL INJ ONE (16:20)
[2018-08-07] MEDS ORDERED: PROPOFOL IV EMULSION 10 MG/ML 20 ML VIAL IV ONE (16:20)
--- NOTE | 2018-08-08 00:48 | Discharge Summary ---
FINAL DIAGNOSES: 1. Status post fall after alcohol drinking at the bar. The patient had multiple bruises, but more importantly he had a forehead laceration that has profoundly bled, now has stopped. 2. Hemoglobin was 5.5, status post blood transfusion multiple units. Hemoglobin now is 10.4, stable. No further bleed. 3. Patient was on Plavix and Eliquis for atrial fibrillation, and Plavix is stopped. Continue with Eliquis for atrial fibrillation. 4. Alcohol consumption, moderate to large amount. Advised the patient on cessation. SUMMARY: This is a 78-year-old male apparently was drinking at the bar with his friends, and after 1 a.m. came out to go home, walking around the car, tripped over and fell on his forehead. The patient had multiple bruises, hematoma, but profoundly bleeding in the forehead area. The patient bled significantly. He was on Plavix and Eliquis. The patient has pressure treatment and the wound much improved; however, his hemoglobin at first was 8.1 and subsequently went down to 5.5, verified. The patient did receive multiple blood transfusion units. His hemoglobin now has been 10.4. The patient is stable. No further bleed. His forehead area has significantly improved hematoma, but there is no gross bleeding. The patient was given treatment. He is detoxed now basically. The patient is stable. He will go home today and follow up with his family doctor. He will take Keflex 500 mg 3 times a day for 5 days to make sure that he does not end up with an infection on his frontal forehead area. Folic acid 1 mg daily and thiamine 100 mg daily. Patient is stable. Resume his home medication except for Plavix. Of note, the patient did have EGD, normal esophagus, and normal stomach. No gross bleed. Job#: [id number]
== END 2018-08-07 16:21 | disposition home or self-care (01) | DRG 103 ==
LOC: ER 23:01 → ERHOLD 08-04 07:00 → IMCU 08-04 13:32 → OBSVTOIN 08-05 09:09 → MED/SURG3 08-05 15:10 → IMCU 08-05 15:11 → MED/SURG3 08-05 15:17
PROVIDERS: ADMIT Internal Medicine; ATTEND Internal Medicine
DX: R51 Headache (principal)
CPT/HCPCS: 36415; 43239; 70450; 71045; 72125; 80048; 80053; 80320; 81001; 82550; 82553; 83605; 84484; 85014; 85018; 85025; 85610; 85730; 86850; 86900; 86920; 87086; 88304; 88305; 88312; 90471; 90714; 93005; 94640; 99285; G0378; J0690; J1940; J2001; J2543; J3411; J7030; J7050; P9016

== ENCOUNTER 2018-12-24 01:14 | Inpatient (IN) | payer OTHER ==
[~2018-12-24] VITALS: Ht 170.2 cm; Wt 71.9 kg
[~2018-12-24 01:14] MED LIST changes: +CARVEDILOL12.5 MG PO; +FUROSEMIDE40 MG PO; +VASOTEC5 MG PO; +eliquis PO
--- OUTSIDE RECORDS SUMMARY | 2018-12-24 01:17 | XMS REPORT | Continuity of Care Document ---
Author Author [facility] Address Unknown Phone Unavailable Problems Problem Status Onset Date Classification Date Reported Comments Source AV NODE ABLATION Active 02/08/2018 [facility] UNK Active 01/18/2018 [facility] Shortness of breath 12/11[facility]2017 [facility] [place] K52.9 - NONINFECTIVE GASTROENTERITIS A Active 11/12/2016 [facility] [place] 428.22/426.52/414.02 Active 05/30/2014 [facility] Angina Active Problem [facility]/14[facility] [place] Chronic systolic heart failure Active Problem [facility] Problem [facility]/14[facility] SOB on exertion(<span ID="[id number]">Confirmed</span>) Active Problem 03/14/2018 [facility] Medications Medication Details Route Status Patient Instructions Ordering Provider Order Date Source atorvastatin 10 mg, PO, Daily, 0 Refill(s) Active 02/21/2018 [facility] atorvastatin 10 mg oral tablet 10 mg=1 tab, PO, Daily, 0 Refill(s) Inactive 02/21/2018 [facility] Allergies, Adverse Reactions, Alerts Substance Category Reaction Severity Reaction type Status Date Reported Comments Source Immunizations Immunization Date Given Site Status Last Updated Comments Source Results Order Name Results Value Reference Range Date Interpretation Comments Source Knee 1-2 Views unilateral DX Knee 1-2 Views unilateral DX Exam: Left knee x-ray, 3 views Reason for Exam: Left knee pain Comparison Exam: none Discussion: No fractures or dislocations are seen of the left knee. The joint spaces are preserved. No intraosseous lesions. No radiopaque foreign bodies. Multiple subcutaneous dejon are seen along the medial aspect of the left knee. Large amount of vascular calcifications seen within the deep arterial system. Impression: 1. No acute bony abnormalities seen within the left knee. 08/11/2018 - - Read by: Gary Sosa MD Dictated Date/time: 08/11/18 11:34 Electronically Signed by: Gary Sosa MD 08/11/18 11:36 FINAL REPORT [facility] ELECTROLYTES AGAP 14.8 meq/L 10.0 - 20.0 02/18/2018 [facility] ELECTROLYTES eGFR 33 mL/min/1.73m2 02/18/2018 Result Comment: [...] should be multiplied by the estimated BMI. [facility] ELECTROLYTES Glucose Lvl 112 mg/dL 70 - 99 02/18/2018 [facility] ELECTROLYTES CO2 28 meq/L 24 - 32 02/18/2018 [facility] ELECTROLYTES Chloride Lvl 98 meq/L 95 - 109 02/18/2018 [facility] ELECTROLYTES Creatinine Lvl 1.91 mg/dL 0.50 - 1.40 02/18/2018 [facility] ELECTROLYTES BUN 29 mg/dL 7 - 22 02/18/2018 [facility] ELECTROLYTES Potassium Lvl 3.8 meq/L 3.5 - 5.1 02/18/2018 [facility] ELECTROLYTES Sodium Lvl 137 meq/L 135 - 145 02/18/2018 [facility] ELECTROLYTES Calcium Lvl 9.2 mg/dL 8.5 - 10.5 02/18/2018 [facility] HEMATOLOGY WBC 7.3 K/CMM 3.7 - 10.4 02/18/2018 [facility] HEMATOLOGY MCV 89.0 fL 80.0 - 94.0 02/18/2018 [facility] RBC 4.13 M/CMM 4.70 - 6.10 02/18/2018 [facility] Hct 36.8 % 42.0 - 54.0 02/18/2018 [facility] Hgb 12.2 g/dL 14.0 - 18.0 02/18/2018 [facility] MPV 7.9 fL 7.4 - 10.4 02/18/2018 [facility] Platelet 156 K/CMM 133 - 450 02/18/2018 [facility] MCH 29.5 pg 27.0 - 31.0 02/18/2018 [facility] RDW 18.6 % 11.5 - 14.5 02/18/2018 [facility] MCHC 33.1 g/dL 32.0 - 36.0 02/18/2018 [facility] PTT 33.3 s 22.9 - 35.8 02/18/2018 [facility] PT 15.7 s 12.0 - 14.7 02/18/2018 [facility] INR 1.24 0.85 - 1.17 02/18/2018 [facility] Monocytes # 0.8 K/CMM 0.0 - 0.8 02/18/2018 [facility] Eosinophils # 0.1 K/CMM 0.0 - 0.5 02/18/2018 [facility] Basophils # 0.1 K/CMM 0.0 - 0.2 02/18/2018 [facility] Lymphocytes # 1.9 K/CMM 1.0 - 5.5 02/18/2018 [facility] Basophils 1.0 % 0.0 - 1.0 02/18/2018 [facility] Segs-Bands # 4.5 K/CMM 1.5 - 8.1 02/18/2018 [facility] Monocytes 10.4 % 2.0 - 12.0 02/18/2018 [facility] Eosinophils 1.2 % 0.0 - 4.0 02/18/2018 [facility] Lymphocytes 25.7 % 20.0 - 40.0 02/18/2018 [facility] Segs 61.7 % 45.0 - 75.0 02/18/2018 [facility] Chest 2 views DX Chest 2 views [...] Zena Mendoza MD 12/06/17 14:37 FINAL REPORT [facility] Spine sacrum AP/Lat DX Spine sacrum AP/Lat [...] Fletcher MD 04/08/17 18:40 FINAL REPORT EVIE Zhua Spine lumbar 2 or 3 views DX [...] Fletcher MD 04/08/17 18:43 FINAL REPORT EVIE Zhua Abdomen/Pelvis w IV contrast CT Abdomen/Pelvis w IV contrast CT EXAM: CT ABDOMEN AND PELVIS WITH CONTRAST DATE:- 11/19/2016 9:09 AM [employer]WING TE[employer]ER . ADDITIONAL DATA: None COMPARISON: None Dose: [...] Larkin MD 11/19/16 16:18 FINAL REPORT [facility] Chest 2 views Chest 2 views EXAM: [...] significant interval change compared to 06/07/2014. SL: 13 06/08/2014 - - Read by: Mindi Haney MD Dictated Date/time: 06/08/14 08:20 Electronically Signed by: Mindi aHney MD 06/08/14 08:22 FINAL REPORT [facility] Chest 1view Chest 1view Chest one view: [...] and wires project over the patient's chest. SL:13 06/07/2014 - - Read by: Doron Herrera MD Dictated Date/time: 06/07/14 15:47 Electronically Signed by: Doron Herrera MD 06/07/14 15:49 FINAL REPORT [facility] Vital Signs Vital Sign Value Date Comments Source Systolic (mm Hg) 132 02/21/2018 [facility] Diastolic (mm Hg) 77 02/21/2018 [facility] BMI Calculated 26.21 02/18/2018 [facility] Weight 78.182 02/18/2018 [facility] Height 172.72 cm 02/18/2018 [facility] Encounters Location Location Details Encounter Type Encounter Number Reason For Visit Attending Provider ADM Date DC Date Status Source [facility] [place] [facility] [id number] Tom Smith 11/19/2016 11/20/2016 MARK [place] [facility] [place] [facility] [id number] Tom Smith 04/08/2017 04/09/2017 LOLYD [place] [facility] [place] [facility] [id number] Tom Smith 12/06/2017 12/07/2017 MARK [facility] Bed[facility] Outpatient [id number] Areli Diop 02/21/2018 02/21/2018 [facility] Procedures Procedure Code Date Perfomer Comments Source Appendectomy [id number] [facility] [place] CABG x 3 - Coronary artery bypass grafts x 3 [id number] [facility] Carotid endarterectomy [id number] [facility] Implantation of cardiac pacemaker [id number] [facility] Appendectomy [id number] [facility] CABG x 3 - Coronary artery bypass grafts x 3 [id number] [facility] Carotid endarterectomy [id number] [facility] Implantation of cardiac pacemaker [id number] [facility]
[2018-12-24 03:09] LABS: BASOPHILS % 0.2 % (0.0-1.0); EOSINOPHILS % 0.2 % (0.0-6.0); HEMATOCRIT 35.7 % (38.2-49.6); LYMPHOCYTES % 10.8 % (18.0-39.1); MEAN CORPUSCULAR HGB CONC 33.6 g/dL (31-35); MEAN CORPUSCULAR VOLUME 98.1 fL (81-99); MONOCYTES # (AUTO) 0.7 (0.2-0.8); MONOCYTES % 7.7 % (4.4-11.3); NEUTROPHILS # (AUTO) 7.7 (2.1-6.9); NEUTROPHILS % 80.6 % (38.7-80.0); PLATELET COUNT 145 x10e3/uL (140-360); RED BLOOD COUNT 3.64 x10e6/uL (4.3-5.7); RED CELL DISTRIBUTION WIDTH 21.4 % (11.7-14.4)
[2018-12-24 03:10] LABS: CLARITY,URINE CLEAR (CLEAR); LEUKOCYTE ESTERASE ,URINE NEGATIVE (NEGATIVE)
[2018-12-24 03:11] LABS: KETONES,URINE TRACE (NEGATIVE); NITRITE,URINE NEGATIVE (NEGATIVE); PROTEIN,URINE DIPSTICK NEGATIVE (NEGATIVE)
[2018-12-24 03:12] LABS: BILIRUBIN,URINE 1+ (NEGATIVE); COLOR,URINE AMBER (YELLOW); URINE UROBILINOGEN 1 mg/dL (0.2 - 1)
[2018-12-24] MEDS ORDERED: FUROSEMIDE INJ 10 MG/ML 4 ML VIAL IV STA (03:21)
[2018-12-24 03:22] LABS: BACTERIA,URINE RARE /HPF; EPITHELIAL CELLS,URINE RARE /LPF; RBC,URINE 0-5 /HPF (0-5); WBC,URINE (MAN) 0-5 /HPF (0-5)
[2018-12-24 03:27] LABS: ALBUMIN 3.1 g/dL (3.5-5.0); ALBUMIN/GLOBULIN RATIO 0.9 (0.8-2.0); ANION GAP 16.4 mmol/L (8-16); CALCIUM 9.9 mg/dL (8.4-10.2); CREATININE, SERUM 1.65 mg/dL (0.72-1.25); MAGNESIUM 2.1 MG/DL (1.3-2.1); POTASSIUM 4.4 mmol/L (3.5-5.1)
[2018-12-24 03:33] LABS: CREATINE KINASE MB 4.5 ng/mL (0-5.0)
--- NOTE | 2018-12-24 03:47 | Diagnostic Imaging Report ---
Examination: Single AP view of the chest. COMPARISON: Portable chest 08/04/2018 INDICATION: Pitting edema in bilateral lower extremity for 5 days, history of CHF IMPRESSION: 1. Lines and Tubes: Stable left upper chest multilead cardiac device. 2. Mild perihilar interstitial opacities. No definite consolidation. Small right pleural effusion and likely associated atelectasis. 3. Enlarged cardiac silhouette. Central pulmonary venous congestion. Findings likely represent mildly decompensated CHF. 4. No acute bony abnormalities. Signed by: Dr. Grady Neal M.D. on 12/24/2018 3:44 AM
[2018-12-24 04:02] LABS: ABG HCO3 20 mmol/L (23-28); ABG PCO2 33 mmHg (41-51); ABG PH 7.39 (7.31-7.41); ABG PO2 81 mmHg (80-105)
[2018-12-24] MEDS ORDERED: ASPIRIN 81 MG CHEW TAB PO ONE (05:15)
--- NOTE | 2018-12-24 05:30 | NUR ---
PT YELLING OUT HE CANNOT VOID, STATES HE FEELS LIKE SOMETHING IS BLOCKING HIS URINE. AWARE, INST TO INSERT GUERIN, GUERIN ATTEMPTED WITH 16FR WITHOUT SUCCESS, PLACED 18FR COUDE TIP IN PATIENT WITHOUT DIFFICULTY, DARK RED RETURN WITH SEVERAL SMALL CLOTS THEN CLEARED TO LIGHT KAYLEEN IN COLOR, DRAINING TO GRAVITY, SECURED TO LEFT THIGH. 650CC INITIAL OUTPUT, MD AWARE
--- NOTE | 2018-12-24 07:01 | NUR ---
ASSUMED CARE AT THIS TIME. PATIENT AWAKE AND ALERT. RESP EVEN AND UNLABORED. SKIN WARM AND DRY. BIPAP REMOVED, TOLERATING WELL. NO SIGNS OF ACUTE DISTRESS NOTED AT THIS TIME. DENIES ANY C/O AT THIS TIME.
--- NOTE | 2018-12-24 07:01 | NUR ---
REPORT TO OBEY PACE
--- NOTE | 2018-12-24 07:02 | NUR ---
BROOKE DC'D PER DR JONES VERBAL ORDER
[2018-12-24] MEDS ORDERED: FOLIC ACID1 MG PO (07:29)
[2018-12-24] MEDS ORDERED: FERROUS SULFAT325 MG PO (07:29)
[2018-12-24] MEDS ORDERED: FUROSEMIDE INJ 10 MG/ML 4 ML VIAL IV SCH (09:00)
--- NOTE | 2018-12-24 10:00 | NUR ---
PATIENT AWAKE AND ALERT SITTING IN BED. RESP EVEN AND UNLABORED .SKIN WARM AND DRY. NO SIGNS OF RESP DISTRESS NOTED AT THIS TIME. NO SIGNS OF ACUTE DISTRESS NOTED AT THIS TIME. DENIES ANY C/O AT THIS TIME.
--- NOTE | 2018-12-24 10:50 | NUR ---
ULTRASOUND AT BEDSIDE FOR ECHO. NO SIGNS OF ACUTE DISTRESS NOTED AT THIS TIME.
[2018-12-24 10:53] LABS: CLARITY,URINE HAZY (CLEAR); COLOR,URINE YELLOW (YELLOW); NITRITE,URINE NEGATIVE (NEGATIVE); PROTEIN,URINE DIPSTICK NEGATIVE (NEGATIVE)
[2018-12-24 10:54] LABS: BILIRUBIN,URINE NEGATIVE (NEGATIVE); KETONES,URINE NEGATIVE (NEGATIVE); LEUKOCYTE ESTERASE ,URINE TRACE (NEGATIVE); URINE UROBILINOGEN 1 mg/dL (0.2 - 1)
[2018-12-24 11:10] LABS: BACTERIA,URINE FEW /HPF; EPITHELIAL CELLS,URINE FEW /LPF; RBC,URINE 21-50 /HPF (0-5); WBC,URINE (MAN) 21-50 /HPF (0-5)
--- NOTE | 2018-12-24 11:45 | NUR ---
REC'D VERBAL REPORT IN WALKING ROUNDS WITH OBEY PACE FOR CONTINUITY OF CARE
--- NOTE | 2018-12-24 11:45 | NUR ---
VERBAL REPORT GIVEN TO OBEY PEREZ.
--- NOTE | 2018-12-24 12:02 | NUR ---
SPOKE WITH DR. TORRES RE THIS PT'S ADMIT AND HE HAD ALREADY BEEN NOTIFIED
--- NOTE | 2018-12-24 12:10 | NUR ---
SPOKE WITH DR. MULLIGAN RE CONSULT AND HE WILL SEE THE PT. IN THE MORNING
--- NOTE | 2018-12-24 12:40 | NUR ---
C/B REC'D FROM DR. Antoinette STEARNS RE CONSULT FOR THIS PT. GIVEN UPDATE ON INITIAL OUTPUT. NO NEW ORDERS REC'D
--- NOTE | 2018-12-24 12:56 | NUR ---
PT SITTING UP IN BED EATING LUNCH AND HAS CALL BEJARANO IN HAND. NO S/SX OF DISTRESS NOTED
[2018-12-24 14:31] LABS: CREATINE KINASE MB 3.3 ng/mL (0-5.0)
--- NOTE | 2018-12-24 14:31 | Diagnostic Imaging Report ---
CT chest, abdomen and pelvis without intravenous contrast Indication: Leg swelling, shortness of breath, urinary retention Technique: Thin collimation axial images obtained from the thoracic inlet to the level of the pubic symphysis without intravenous contrast. RADIATION DOSE: Total DLP: 874.5 mGy*cm Estimated effective dose: (DLP x 0.015 x size factor) mSv CTDIvol has been reviewed. It is below the limits set by the Radiation Protocol Committee (RPC). Dose reduction techniques used: Automated exposure control, adjustment of the mAs and/or kVp according to patient size, standardized low-dose protocol, and/or iterative reconstruction technique. Comparison: Chest x-ray 12/24/2018. CHEST FINDINGS: Lymph nodes: No enlarged axillary, supraclavicular lymph nodes. Prevascular lymph nodes are increased in number and measure up to 16 mm. A precarinal lymph node has a fatty hilum and measures 17 mm. There is bulky confluent lymphadenopathy in the left hilum extending to the prevascular space. Here, the conglomeration measures approximately 3.0 x 4.5 cm. Thyroid: Visualized portions are normal. Mediastinum: Pacemaker/defibrillator wires are present in the right atrium, right ventricle and coronary sinus. The heart is enlarged. Subendocardial fat deposition in the left ventricle suggestive of remote infarct. No pericardial effusion. Lungs: Right Lung: Centrilobular emphysema with bronchial wall thickening. Posterior pleural effusion measures 2.9 cm. There are multiple pulmonary nodules: * Spiculated nodule in the posterior upper lobe measures 1.1 x 2.0 cm. * Round nodule along the minor fissure measures 9 x 9 mm. * Nodule in the anterior minor fissure measures 1.0 x 0.8 cm. * Round nodule in the lower lobe measures 7 mm. Left Lung: Centrilobular emphysema and bronchial wall thickening. Posterior pleural effusion measures 4.6 cm. * Large lobulated airspace opacity in the inferior upper lobe/lingula abuts the pleura and mediastinum with marked narrowing of the lingular bronchus and upper lobe bronchi. The largest area of airspace disease measures 3.9 x 6.8 cm in the axial plane. * Nodule abutting the anterior pleura (image 64) measures 1.3 x 1.2 cm. * Anterior lower lobe nodule measures approximately 6 mm. Pleura:No pneumothorax ABDOMEN FINDINGS: Liver: Lobulated contours consistent with cirrhosis. The liver is decreased in attenuation consistent with steatosis. No evidence for mass. Gallbladder: Present and contains multiple subcentimeter gallstones.. No biliary ductal dilatation. Pancreas: Fatty atrophy. No mass or ductal dilatation. Spleen: Normal in size without mass. Adrenal Glands: Mild thickening of the left adrenal gland without mass. Right adrenal gland is normal. Kidneys: Right: No renal calculus. No cortical mass. No hydronephrosis. Left: No renal calculus. No cortical mass. No hydronephrosis. Lymph Nodes: No enlarged abdominal or periaortic lymph nodes. Aorta: Normal in diameter and is heavily calcified. PELVIS FINDINGS: Bowel: Stomach: Distended with fluid. No mural thickening. Small Bowel: Normal in caliber with normal wall thickness. Large Bowel: Diverticulosis coli. No associated inflammation. Moderate burden of stool throughout. Appendix: Not visualized and may be absent or collapsed. Bladder: Collapsed around a Malin catheter with nondependent air. No ureteral dilatation. Lymph Nodes: No enlarged mesenteric, pelvic, or internal lymph nodes. Peritoneum/retroperitoneum: Small to moderate amount of perihepatic and pelvic ascites. No free air. Bones: Diffuse demineralization. Degenerative changes throughout the spine. Grade 1 anterolisthesis of L5 on S1 with bilateral pars defects. Grade 1 retrolisthesis of L4 on L5. No lytic or blastic lesions. Soft tissues: Diffuse subcutaneous edema. There are surgical clips in the inguinal regions. IMPRESSION: 1. Large infiltrative mass in the inferior left upper lobe/lingular with marked left hilar and mediastinal lymphadenopathy consistent with carcinoma. This mass occludes portions of the left bronchi as described above. 2. Multiple pulmonary nodules in each lung concerning for metastases. 3. Moderate bilateral pleural effusions. 4. Cardiomegaly and atherosclerosis. 5. Cirrhosis and steatosis. No splenomegaly. Cholelithiasis. Diverticulosis coli. No evidence for bowel obstruction or inflammation. 6. No mass or lymphadenopathy in the abdomen or pelvis to suggest metastasis. Signed by: Dr. Antonio Flores MD on 12/24/2018 2:27 PM
[2018-12-24 15:45] VITALS: BP 106/64
--- NOTE | 2018-12-24 15:45 | NUR ---
PATIENT RECEIVED FROM ER PER STRETCHER. ALERT AND VERBALLY RESPONSIVE. SKIN WARM AND DRY TO TOUCH, RESPIRATION EVEN AND UNLABORED WITH SOME AUDIBLE WHEEZING. + 2 EDEMA TO LOWER EXTREMITIES; SMALL CLOSED BLISTERS AND LARGE OPEN BLISTER TO LEFT FOOT, ELEVATED ON PILLOW. BED IN LOWER POSITION, CALL LIGHT AT REACH. INSTRUCTED TO CALL FOR ASSISTANCE NEEDED.
[2018-12-24] MEDS: FUROSEMIDE INJ 10 MG/ML 4 ML VIAL IV SCH (16:00)
[2018-12-24] MEDS: FOLIC ACID 1 MG TAB PO SCH (16:00)
[2018-12-24 16:03] VITALS: BP 106/64
--- NOTE | 2018-12-24 17:12 | History and Physical ---
PRIMARY CARE PHYSICIAN: Luis. CHIEF COMPLAINT: Congestive heart failure, acute exacerbation. HISTORY OF PRESENT ILLNESS: This is a 78-year-old male who has chronic systolic dysfunction, congestive heart failure with coronary artery disease, previous bypass surgery, and also with ICD to left chest. The patient came in with increasing shortness of breath. Apparently, he has urinary retention. After Malin catheter was placed, the patient put out quite significant urine and he felt better. The patient was on furosemide at home, but per the patient, he has cut back on his fluid intake, but he has not improved since he was having difficulty urinating. The patient had history of a previous fall. He has also had previous history of multiple bruises and GI bleed from the fall and also gastritis. He was on Plavix and Eliquis, and Plavix was discontinued, and on Eliquis for his atrial fibrillation. The patient was stable, otherwise. He is doing better now after the Malin catheter was placed. His chemistry panel chronic kidney disease, but his hemoglobin and hematocrit are 12 and 35.7 respectively. Urinalysis is otherwise unremarkable. PAST MEDICAL HISTORY: Coronary artery disease with previous coronary artery bypass graft surgery. Carotid disease with left carotid endarterectomy. Atrial fibrillation, anticoagulant therapy. Hypertension, dyslipidemia, progressive decline, and congestive heart failure, systolic. PAST SURGICAL HISTORY: Coronary artery bypass graft surgery, left carotid endarterectomy, appendectomy, tonsillectomy, left arm abscess incision and drainage, and ICD to left chest. SOCIAL HISTORY: The patient is an alcoholic. He denied tobacco usage and no recreational drug use. ALLERGIES: NO KNOWN ALLERGIES. HOME MEDICATIONS: Albuterol, Coreg, enalapril, ferrous sulfate, folic acid, Eliquis, and furosemide. PHYSICAL EXAMINATION: VITAL SIGNS: Temperature is 98, blood pressure 108/79, pulse rate 112, and respirations 22. GENERAL: The patient is not in acute distress. He is awake. HEENT: Normocephalic, atraumatic. Anicteric. NECK: Supple grossly. PULMONARY: Diminished breath sounds at bases with rales. ICD to left chest minimal expiratory wheezing. CARDIAC: Wheezes. ABDOMEN: Soft . EXTREMITIES: Multiple venous stasis open wounds secondary to lower extremity edema. NEUROLOGIC: Generalized weakness, but no focal deficit. LABORATORY DATA: Sodium is 132, potassium 4.4, chloride 96, bicarb 24, BUN 42, creatinine 1.6, glucose is 146. WBC is 9.5, hemoglobin 12, hematocrit 35.7, and platelets 145. Urinalysis unremarkable. Chest x-ray, pulmonary edema. IMPRESSION: 1. [id number] systolic dysfunction, congestive heart failure with acute exacerbation. 2. Baseline coronary artery disease with previous bypass surgery, cardiomyopathy with ICD. 3. Urinary retention. Malin catheter placed. 4. Multiple chronic baseline problems. PLAN: Keep the Malin catheter, consultation with Dr. Gus Saunders. CT of the chest without contrast. CT of abdomen and pelvis without contrast. Home medication adjustment. IV Lasix. We will repeat the lab work. MD CARSON John/TIFFANIE /[id number]
[2018-12-24] MEDS: CARVEDILOL 12.5 MG TAB PO SCH (17:37)
[2018-12-24] MEDS: APIXABAN 5 MG TABLET PO SCH (17:37)
[2018-12-24 20:00] VITALS: BP 118/65
[2018-12-24] MEDS: TAMSULOSIN HCL 0.4 MG CAP PO SCH (21:39)
[2018-12-24 21:59] LABS: CREATINE KINASE MB 2.9 ng/mL (0-5.0)
--- NOTE | 2018-12-24 22:39 | Consultation ---
DATE OF CONSULTATION: 12/24/2018 Urology Consultation REASON FOR CONSULTATION: Urinary retention and hematuria. HISTORY OF PRESENT ILLNESS: Willi Leblancjunior, is a 78-year-old man, who never really saw a urologist before. The patient reported to the emergency room, was found to be in urinary retention for 650 mL upon Malin placement. Following Malin placement, some hematuria was noted and it was irrigated clear. The patient was subsequently admitted and urological consultation was sought. The patient denies previous history of urolithiasis, hematuria, or urinary tract infections. PAST MEDICAL AND SURGICAL HISTORY: 1. Congestive heart failure with acute exacerbation. 2. Chronic systolic dysfunction. 3. Coronary artery disease. 4. Status post coronary artery bypass surgery. 5. Status post ICD placement. 6. History of previous fall. 7. History of GI bleed and gastritis. 8. Atrial fibrillation. 9. Carotid disease, status post left carotid endarterectomy. 10. Hypertension. 11. Dyslipidemia. 12. Status post appendectomy. 13. Status post tonsillectomy. 14. Status post left arm incision and drainage. SOCIAL HISTORY: The patient is an alcoholic. He also uses tobacco. Denies drug use. ALLERGIES: NONE KNOWN. CURRENT MEDICATIONS: Please refer to the MAR. REVIEW OF SYSTEMS: Consistent with above history of present illness and past medical history, is otherwise negative for all systems. PHYSICAL EXAMINATION: GENERAL: Elderly, very pleasant man, lying in bed, in no apparent distress. VITAL SIGNS: He is currently afebrile. Vitals are currently stable. ABDOMEN: Soft, nondistended, and nontender without costovertebral angle tenderness. Kidneys not palpable, without hepatosplenomegaly. No obvious evidence of hernia. GENITOURINARY: Testes descended bilaterally. Testes and epididymides bilaterally, nontender. The patient has a normal male phallus with normal meatus with Malin catheter in place draining relatively clear urine out. For the remaining physical examination and systems, please refer to the admission history and physical and chart. LABORATORY STUDIES: Urine culture is pending. CT scan of the abdomen and pelvis reveals that the Malin catheter is in good position within the bladder. White blood cell count is 9580, hemoglobin 12, and platelets 145,000. The patient's sodium is low at 132. His creatinine is elevated at 1.65. ASSESSMENT: 1. Urinary retention of 650 mL. 2. Anemia. 3. Hematuria that seems to have resolved. 4. Presumably acute versus chronic renal insufficiency. 5. Possible urinary tract infection with culture pending. 6. Gallstones by CT. PLAN: 1. Leave Malin catheter in place at the present time. 2. We will probably begin the patient on Flomax once we are sure he is medically stable. 3. Ongoing urological followup is a must. 4. Urodynamic studies as an outpatient will probably be pursued following discharge. Thank you very much for involving us in the care of the patient. We will be happy to follow along with you as well as an outpatient. Gus MD Chip OH/MODL /[id number] cc: Tom Smtih MD
[2018-12-25] VITALS (8 sets, daily range): BP systolic 94–113; BP diastolic 60–88
--- NOTE | 2018-12-25 04:32 | NUR ---
Patient laying in bed with HOB slightly elevated. No distress noted. No SOB noted. Patient noted with audible wheezing. Patient requested for Duoneb breathing treatment. Notified Dr. Pierre and received orders and seed technician notified.
[2018-12-25] MEDS: ALBUTEROL/IPRATROPIUM 3 ML NEB NEB PRN ×2 (04:45→23:00)
[2018-12-25 07:07] LABS: BASOPHILS % 0.2 % (0.0-1.0); HEMATOCRIT 34.2 % (38.2-49.6); HEMOGLOBIN 11.6 g/dL (14.0-18.0); LYMPHOCYTES # (AUTO) 1.1 (1.0-3.2); MEAN CORPUSCULAR HEMOGLOBIN 32.9 pg (28-32); MEAN CORPUSCULAR HGB CONC 33.9 g/dL (31-35); MEAN CORPUSCULAR VOLUME 96.9 fL (81-99); MONOCYTES # (AUTO) 0.8 (0.2-0.8); MONOCYTES % 7.1 % (4.4-11.3); NEUTROPHILS # (AUTO) 9.8 (2.1-6.9); NEUTROPHILS % 82.9 % (38.7-80.0); PLATELET COUNT 138 x10e3/uL (140-360); RED BLOOD COUNT 3.53 x10e6/uL (4.3-5.7); RED CELL DISTRIBUTION WIDTH 21.4 % (11.7-14.4)
--- NOTE | 2018-12-25 07:08 | NUR ---
PATIENT IN BED RESTING WITH NO RESPIRATORY DISTRESS. DENIED PAIN AT THIS TIME. + 2 EDEMA TO LOWER EXTREMITIES, ELEVATED ON PILLOW. BED IN LOWER POSITION, CALL LIGHT AT REACH.
[2018-12-25 07:34] LABS: ALBUMIN 2.7 g/dL (3.5-5.0); ALBUMIN/GLOBULIN RATIO 0.9 (0.8-2.0); ANION GAP 14.1 mmol/L (8-16); CALCIUM 9.4 mg/dL (8.4-10.2); CREATININE, SERUM 1.31 mg/dL (0.72-1.25); POTASSIUM 4.1 mmol/L (3.5-5.1)
[2018-12-25] MEDS: ALBUTEROL/IPRATROPIUM 3 ML NEB NEB SCH ×3 (07:48→19:25)
[2018-12-25] MEDS: APIXABAN 5 MG TABLET PO SCH ×2 (09:11→17:36)
[2018-12-25] MEDS: FOLIC ACID 1 MG TAB PO SCH (09:11)
[2018-12-25] MEDS: CARVEDILOL 12.5 MG TAB PO SCH ×2 (09:12→17:36)
[2018-12-25] MEDS: FUROSEMIDE INJ 10 MG/ML 4 ML VIAL IV SCH ×2 (09:12→13:54)
--- NOTE | 2018-12-25 11:20 | NUR ---
MD IN TO SEE PATIENT. NEW ORDER RECEIVED FOR 1500CC FLUID RESTRICTION. PATIENT NOTIFIED, MEASUREMENT CUP PROVIDED. BED IN LOWER POSITION, CALL LIGHT AT REACH.
[2018-12-25] MEDS ORDERED: AZITHROMYCIN 250 MG TAB PO NR ×2 (13:30→18:00)
--- NOTE | 2018-12-25 13:42 | Consultation ---
DATE OF CONSULTATION: 12/24/2018 REASON FOR CONSULTATION: CHF. CONSULTING PHYSICIAN: Dr. Bright Pierre. HISTORY OF PRESENT ILLNESS: This is a pleasant, but noncompliant 78-year-old male who presented with shortness of breath. According to the patient x1 week, he was having shortness of breath, unable to carry out activities of daily living, dyspnea on exertion that he came in for evaluation. He is noncompliant. He drinks alcohol and smokes daily and stated "I have been alive forever regardless of what you have been telling me." He has multiple medical problems and he has been on anticoagulation for AFib. He denied any chest pain, any palpitation, any headache, nausea, or vomiting. BNP 1702. Chest x-ray showed central pulmonary venous congestion. PAST MEDICAL HISTORY: 1. CAD. 2. Carotid stenoses. 3. AFib. 4. Gastritis. 5. Hepatitis B. 6. GI bleed. 7. Chronic systolic CHF. 8. Urinary retention. 9. Fall. 10. [place]. 11. Gallstones. 12. BPH. 13. Hypertension. 14. Hyperlipidemia. 15. Loss of right thumb. PAST SURGICAL HISTORY: Appendectomy, tonsillectomy, left arm abscess status post I and D, ICD, and vasectomy. FAMILY HISTORY: Positive for CAD. SOCIAL HISTORY: He lives at home alone. He smokes and drinks alcohol daily. MEDICATIONS: See med list. ALLERGIES: HE IS NOT ALLERGIC TO ANY MEDICATION. REVIEW OF SYSTEMS: Negative except those mentioned above. PHYSICAL EXAMINATION: VITAL SIGNS: Temperature 96, heart rate 72, blood pressure 105/62, respirations 18, and oxygen saturation 99% on room air. GENERAL: He is awake, alert, and oriented x3. HEENT: Mucous membranes moist. NECK: Supple. LUNGS: Bilateral decreased breath sounds. CARDIOVASCULAR: Irregular. ABDOMEN: Soft. NEUROLOGIC: Intact. EXTREMITIES: Positive edema bilaterally. LABS: Sodium 131, potassium 4.1, chloride 96, CO2 25, BUN 41, creatinine 1.31, and glucose 117. White blood cell 11.7, hemoglobin 11.6, hematocrit 34.2, and platelets 138. IMPRESSION: 1. Chronic systolic congestive heart failure exacerbation. 2. Anemia. 3. Atrial fibrillation. 4. Noncompliance. 5. Alcohol and tobacco abuse. 6. Coronary artery disease with implantable cardioverter-defibrillator. 7. Hyponatremia. 8. Renal insufficiency. 9. Transaminitis. ASSESSMENT AND PLAN: 1. He had an echocardiogram done that showed impaired systolic function, EF 25% to 30%. 2. We will continue diuretic and beta-eliana. 3. We will put him on low-salt diet and 1.5 fluid restriction. 4. Continue his home medications. 5. He has been counseled on alcohol and tobacco cessation. Further cardiac workup pending clinical course. Thank you for this consultation. Dictated by Pratibha Shelton NP MD HOLLY Ferrera/MODL /[id number]
[2018-12-25 14:25] LABS: FREE THYROXINE INDEX 2.5548 (1.4-3.8); THYROID STIMULATING HORMONE 0.715 uIU/mL (0.350-4.940)
--- NOTE | 2018-12-25 14:52 | Consultation ---
DATE OF CONSULTATION: 12/25/2018 CONTINUATION: Mr. Leblanc has multiple pulmonary scars in addition a lingular infiltrate and suggestion of bronchostenosis. In view of his long smoking history and multiple risk factors, I recommend bronchoscopy if the Eliquis can safely be held. We will tentatively schedule this for December 27. Alternatively, antibiotics could be continued and a followup CT in 6 weeks. Thank you for this kind referral. MD ROBIN Chua/ZOEYL /[id number]
--- NOTE | 2018-12-25 16:24 | NUR ---
PATIENT DIAPER CHECKED. REPOSITIONED IN BED. DENIED PAIN AT THIS TIME. CALL LIGHT AT REACH.
--- NOTE | 2018-12-25 19:45 | NUR ---
PT IS RESTING IN BED WATCHING TV. NO RESPIRATORY DISTRESS NOTED. BED IN THE LOWEST POSITION, LOCKED, BED ALARM ON, AND CALL LIGHT WITHIN REACH. WILL CONTINUE TO MONITOR.
[2018-12-25] MEDS: TAMSULOSIN HCL 0.4 MG CAP PO SCH (20:26)
[2018-12-26] VITALS (7 sets, daily range): BP systolic 94–113; BP diastolic 63–73
[2018-12-26] MEDS: ALBUTEROL/IPRATROPIUM 3 ML NEB NEB SCH ×4 (00:05→20:15)
[2018-12-26 06:29] LABS: INR 1.24; PROTHROMBIN TIME 16.2 seconds (11.9-14.5)
[2018-12-26 06:30] LABS: PARTIAL THROMBOPLASTIN TIME 33.4 seconds (23.8-35.5)
[2018-12-26] MEDS ORDERED: ENOXAPARIN SODIUM INJ 100 MG/ML SYR SC SCH (08:15)
[2018-12-26] MEDS: FUROSEMIDE INJ 10 MG/ML 4 ML VIAL IV SCH ×2 (08:54→12:34)
[2018-12-26] MEDS: FOLIC ACID 1 MG TAB PO SCH (08:55)
[2018-12-26] MEDS: AZITHROMYCIN 250 MG TAB PO SCH (08:55)
[2018-12-26] MEDS: CARVEDILOL 12.5 MG TAB PO SCH ×2 (09:10→16:51)
[2018-12-26] MEDS: ENOXAPARIN INJ 80 MG/0.8 ML SYR SC SCH ×2 (09:11→21:35)
--- NOTE | 2018-12-26 09:48 | NUR ---
EDUCATED ABOUT IMM, SIGNED, FILED IN CHART, WITH COPY LEFT WITH FAMILY AT BEDSIDE.
--- NOTE | 2018-12-26 19:29 | NUR ---
RECEIVED PT N BED AOX3 . RESPIRATIONS ARE EVEN AND UNLABORED .SKIN WARM AND DRY TO TOUCH .FAMILY AT THE BEDSIDE .CALL LIGHT WITH IN REACH .CONTINUE TO MONITOR
--- NOTE | 2018-12-26 20:48 | NUR ---
Nutrition Screen Note RD Recommendation for Physician: -Rec adding mechanical soft to cardiac diet as medically appropriate Plan of Care: RD following, monitoring for tolerance and adequacy Nutrition reason for involvement: Diagnosis Primary Diagnose(s): CHF PMH: Coronary artery disease with previous coronary artery bypass graft surgery. Carotid disease with left carotid endarterectomy. Atrial fibrillation, anticoagulant therapy. Hypertension, dyslipidemia, progressive decline, and congestive heart failure, systolic. Ht: 67in Wt: 187lb BMI: 29.3kg/m2 IBW: 148lb RD Assessment: (12/26) Chart reviewed. Labs and meds reviewed. 78yo M, who was admitted for SOB. Currently on Lasix and 1500mL fluids restriction. 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 Pt denied swallowing problems and nausea/vomiting. Pt reported chewing difficulty due to poor fitting denture. RD downgraded diet texture to mechanical soft. Obtained diet preferences. Will continue to monitor and follow. Current Diet: cardiac diet Malnutrition Evaluation (12/26/2018) The patient does not meet criteria for a specified degree of malnutrition at this time. Will re-evaluate at follow-up as appropriate. Diet Education Needs Assessment: Diet education not indicated. Nutrition Care Level: low Signed: Tressa Yang, MS, RD, LD
[2018-12-26] MEDS: TAMSULOSIN HCL 0.4 MG CAP PO SCH (21:35)
[2018-12-27] VITALS (9 sets, daily range): BP systolic 91–121; BP diastolic 51–74
[2018-12-27] MEDS: ALBUTEROL/IPRATROPIUM 3 ML NEB NEB SCH ×4 (01:15→19:45)
--- NOTE | 2018-12-27 03:25 | Consultation ---
DATE OF CONSULTATION: 12/25/[address] Pierre and Dr. Saunders. HISTORY OF PRESENT ILLNESS: Charming, but unfortunate 78-year-old gentleman with a history of ischemic cardiomyopathy, admitted with severe edema and blister in the legs. He has also been short of breath, weak, coughing green sputum, felt cold, but no fever and chills. History of atrial fibrillation, congestive heart failure, and hypertension. He has had urinary retention. ALLERGIES: NO KNOWN ALLERGIES. MEDICATIONS: Included Eliquis, albuterol, Coreg, Vasotec, iron, folic acid, and Lasix. SOCIAL HISTORY: History of alcohol, drinking four beers a day. Smoking; tried to quit, but then resumed smoking, he has been smoking since age 9. 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 PAST SURGICAL HISTORY: He has had appendectomy, T and A, left carotid surgery, coronary artery bypass surgery in 1997. He has an AICD. He has had an I and D of a wound in the left arm. FAMILY HISTORY: Positive for diabetes, coronary artery disease, and alcoholism. PHYSICAL EXAMINATION: GENERAL: He is a well-developed white male, in no acute distress, looking stated age. VITAL SIGNS: Temperature 95.7, pulse 91, respirations 18, and blood pressure 160/80. HEAD: Normocephalic, atraumatic. LUNGS: Bilateral rhonchi. Diminished breath sounds at right base. HEART: Regular rhythm. ABDOMEN: Nontender. EXTREMITIES: Edematous. IMPRESSION: Community-acquired pneumonia, rule out bronchial obstruction. DICTATION ENDS HERE MD ROBIN Chua/ZOEYL /[id number]
--- NOTE | 2018-12-27 06:09 | NUR ---
PT RESTED DURING THE NIGHT AND DENIES PAIN .CALL LIGHT WITH IN REACH +CONTINUE TO MONITOR
--- NOTE | 2018-12-27 07:13 | NUR ---
REPORT GIVEN TO THE ONCOMING NURSE FOR CONTINUING CARE
[2018-12-27] MEDS: FUROSEMIDE INJ 10 MG/ML 4 ML VIAL IV SCH ×2 (08:39→12:34)
[2018-12-27] MEDS: FOLIC ACID 1 MG TAB PO SCH (08:40)
[2018-12-27] MEDS: AZITHROMYCIN 250 MG TAB PO SCH (08:40)
[2018-12-27] MEDS: CARVEDILOL 12.5 MG TAB PO SCH ×2 (08:40→17:07)
[2018-12-27] MEDS: ENOXAPARIN INJ 80 MG/0.8 ML SYR SC SCH ×2 (10:15→20:59)
--- NOTE | 2018-12-27 10:44 | NUR ---
Abnormal EKG results called into cardiology at this time. No new orders at this time.
--- NOTE | 2018-12-27 14:20 | NUR ---
WOUND CARE CONSULT: THIS IS A 78 YEAR OLD FEMALE PATIENT ADMITTED TO [facility] FOR CHF AND GENERAL MEDICAL COMPLAINTS. HEAD TO TOE SKIN ASSESSMENT PERFORMED. PATIENT HAS A STAGE 1 PRESSURE ULCER TO THE SACRUM, MEASURING [id number], 100% NONBLANCHABLE REDNESS. PATIENT HAS A LEFT LOWER LEG VENOUS ULCER MEASURING 2.5X2X0.1CM, WEEPING AND 100% PINK GRANULATION NOTED TO WOUND BED. PATIENT HAS A HISTORY OF CAD, HTN, A FIB, AND CHF. BILATERAL LOWER LEGS HAVE 2+ PITTING EDEMA, PULSES UNABLE TO PALPATE BILATERALLY. LABS: WBC11.77 [id number] URINE CULTURE = NEGATIVE BLOOD CULTURE = NEGATIVE MEDICATIONS: AZITHROMYCIN RECOMMENDATIONS: -CONTINUE ALTERNATING PRESSURE RELIEF MATTRESS. -APPLY BILATERAL HEEL PROTECTORS WITH PILLOW SUSPENSION. -TURN EVERY 2 HOURS AND PRN. -NURSING TO APPLY VENELEX THEN ALLEVYN FOAM TO STAGE 1 PRESSURE ULCER TO SACRUM; CHANGE DAILY AND PRN. -NURSING TO APPLY ADAPTIC, MAXORB AG, THEN KERLIX TO LEFT LOWER LEG VENOUS ULCER; CHANGE DAILY AND PRN. THANK YOU FOR THIS WOUND CARE CONSULTATION. Addendum: 12/27/18 at 1436 by Rachana Vincent RN Amended: Links added.
--- NOTE | 2018-12-27 15:00 | NUR ---
Received orders to Consult IR to do peripheral angiogram.
--- NOTE | 2018-12-27 19:50 | NUR ---
RECEIVED PT N BED AOX3 .SKIN WARM AND DRY TO TOUCH .CALL LIGHT WITH IN REACH .CONTINUE TO MONITOR.PT IS NPO FOR THE PROCEDURE
[2018-12-27] MEDS: TAMSULOSIN HCL 0.4 MG CAP PO SCH (20:59)
[2018-12-27] MEDS: MAGNESIUM/ALUMINUM/SIMETHICONE 30 ML UDC PO PRN (23:45)
[2018-12-28] VITALS (10 sets, daily range): BP systolic 97–119; BP diastolic 56–82
[2018-12-28] MEDS: ALBUTEROL/IPRATROPIUM 3 ML NEB NEB SCH ×4 (00:30→18:45)
--- NOTE | 2018-12-28 05:15 | NUR ---
PT RESTING .NO ACUTE DISTRESS NOTED .CALL LIGHT WITH IN REACH NPO AFTER MIDNIGHT FOR BRONCHOSCOPY
[2018-12-28 06:08] LABS: BASOPHILS % 0.2 % (0.0-1.0); HEMATOCRIT 37.3 % (38.2-49.6); HEMOGLOBIN 12.5 g/dL (14.0-18.0); LYMPHOCYTES # (AUTO) 1.4 (1.0-3.2); MEAN CORPUSCULAR HEMOGLOBIN 33.1 pg (28-32); MEAN CORPUSCULAR HGB CONC 33.5 g/dL (31-35); MEAN CORPUSCULAR VOLUME 98.7 fL (81-99); MONOCYTES # (AUTO) 0.9 (0.2-0.8); MONOCYTES % 7.1 % (4.4-11.3); NEUTROPHILS % 80.9 % (38.7-80.0); PLATELET COUNT 149 x10e3/uL (140-360); RED BLOOD COUNT 3.78 x10e6/uL (4.3-5.7); RED CELL DISTRIBUTION WIDTH 21.2 % (11.7-14.4)
[2018-12-28 06:25] LABS: CALCIUM 9.6 mg/dL (8.4-10.2); CREATININE, SERUM 1.33 mg/dL (0.72-1.25)
--- NOTE | 2018-12-28 07:00 | NUR ---
BEDSIDE SHIFT REPORT FROM NIGHT RN. PT DENIES NEEDS AT THIS TIME.
--- NOTE | 2018-12-28 07:09 | NUR ---
REPORT GIVEN TO THE ONCOMING NURSE FOR CONTINUE CARING
[2018-12-28] MEDS: FUROSEMIDE INJ 10 MG/ML 4 ML VIAL IV SCH ×2 (08:45→12:46)
--- NOTE | 2018-12-28 08:50 | NUR ---
PATIENT OFF UNIT TO OR
[2018-12-28] MEDS: CARVEDILOL 12.5 MG TAB PO SCH ×2 (09:00→16:50)
[2018-12-28] MEDS: FOLIC ACID 1 MG TAB PO SCH (09:00)
[2018-12-28] MEDS: AZITHROMYCIN 250 MG TAB PO SCH (09:00)
[2018-12-28] MEDS ORDERED: LIDOCAINE HCL 4% 50 ML BTL ONE (09:02)
[2018-12-28] MEDS ORDERED: EPINEPHRINE HCL 1:1000 1ML 1 MG/ML AMP ONE (09:03)
[2018-12-28] MEDS ORDERED: OXYMETAZOLINE HCL 0.05% NAS 1 SPRAY BTL ONE (09:03)
--- NOTE | 2018-12-28 09:50 | NUR ---
PT BACK TO UNIT FROM OR. PT DENIED NEEDS AT THIS TIME. BED AT LOWEST POSITION. SIDE RAILS ARE UP. BED ALARM IS ON
--- NOTE | 2018-12-28 11:34 | Diagnostic Imaging Report ---
Examination: Single AP view of the chest. COMPARISON: 12/24/2018 INDICATION: Post bronchoscopy DISCUSSION: Lungs remain well-inflated. Persistent lingular consolidative opacity. No pneumothorax status post bronchoscopy. Right lung remains relatively clear. Small pulmonary nodules described on comparison CT chest 12/24/2018 are not identified by plain radiography. Stable position of left subclavian approach implantable cardiac device body and leads along with postsurgical changes of the mediastinum. No acute osseous abnormality. IMPRESSION: Stable lingular opacity relative to prior CT and plain film exams. No pneumothorax status post bronchoscopy. Unchanged postsurgical mediastinum and cardiomegaly, without overt pulmonary edema. For further description of pulmonary findings refer to the report for CT scan of the chest without contrast 12/24/2018. Signed by: Dr. Roosevelt Sena M.D. on 12/28/2018 11:31 AM
--- NOTE | 2018-12-28 13:44 | Operative Report ---
DATE OF PROCEDURE: 12/28/2018 SURGEON: Roosevelt Parson MD INDICATION: The patient was admitted with pneumonia, history of coronary artery disease, atrial fibrillation, cirrhosis; cause, he thinks he may have aspirated his [place]. CT scan suggested bilateral pulmonary nodules and obstruction in the lingular segment. The patient grew up in [place] and worked there. He has a long smoking history on and off since age 9. ANESTHESIA: Procedure was performed under MAC anesthesia, ably provided by Dr. Bryant. PROCEDURE IN DETAIL: The patient was bronchoscoped through an LMA and general anesthetic was used. The patient's vocal cords appeared normal. There was severe tracheobronchitis, particularly at the area of the left upper lobe. Under fluoroscopic control, cytologic brushing was performed as well as bronchial and transbronchial biopsies. Blood loss was approximately 5 mL. The patient tolerated procedure well. He was taken to recovery room. There was no obvious pneumothorax under fluoroscopy. Thank you for this kind referral. MD ROBIN Chua/MODL /[id number]
[2018-12-28] MEDS: BALSAM PERU/CASTOR OIL 5 GM OINT...G. TP SCH (14:09)
--- NOTE | 2018-12-28 15:52 | NUR ---
CM SPOKE TO PATIENT AT BEDSIDE REGARDING IMM LETTER. IMM LETTER GIVEN WITH EXPLANATION BASED ON ANTICIPATED DISCHARGE DATE. ORIGINAL SIGNED AND PLACED IN CHART; COPY OF ORIGINAL DOCUMENT GIVEN TO PATIENT AT BEDSIDE AND PLACED IN CARE TRANSITION FOLDER. CM CONTACT INFORMATION GIVEN TO PATIENT FOR ANY NEEDS OR CONCERNS. PATIENT WITH NO FURTHER QUESTIONS.
--- NOTE | 2018-12-28 19:05 | NUR ---
BEDSIDE REPORT GIVEN TO ONCOMING HEAD BUCKER RN FOR CONTINUED CARE
[2018-12-28] MEDS ORDERED: MIDAZOLAM HCL 2 MG/2 ML VIAL ONE (19:38)
[2018-12-28] MEDS ORDERED: FENTANYL CITRATE/PF 100MCG/2 ML INJ ONE (19:38)
[2018-12-28] MEDS ORDERED: SEVOFLURANE INHAL SOLN 250 ML PEN BTL ONE (19:43)
[2018-12-28] MEDS ORDERED: LIDOCAINE HCL 2% LOCAL INJ 5 ML SDV VIAL INJ ONE (19:43)
--- NOTE | 2018-12-28 19:55 | NUR ---
RECEIVED PT N BED AOX3 .SKIN WARM AND DRY TO TOUCH . PT HAD BRONCHOSCOPY TODAY HELPED THE PT BACK TO THE BED FROM THE RESTROOM .PT IS NPO AFTER MIDNIGHT FOR PERIPHERAL ANGIOGRAM CALL LIGHT WITH IN REACH .CONTINUE TO MONITOR
[2018-12-28] MEDS: ENOXAPARIN INJ 80 MG/0.8 ML SYR SC SCH (21:32)
[2018-12-28] MEDS: TAMSULOSIN HCL 0.4 MG CAP PO SCH (21:32)
[2018-12-29] VITALS (9 sets, daily range): BP systolic 100–115; BP diastolic 58–72
[2018-12-29] MEDS: ALBUTEROL/IPRATROPIUM 3 ML NEB NEB SCH ×4 (00:02→18:55)
[2018-12-29] MEDS: MAGNESIUM/ALUMINUM/SIMETHICONE 30 ML UDC PO PRN (01:30)
--- NOTE | 2018-12-29 05:28 | NUR ---
PT WAS GETTING OUT OF THE BED DURING THE NIGHT .PT IS NPO FOR PROCEDURE .CALL LIGHT WITH IN REACH CONTINUE TO MONITOR
--- NOTE | 2018-12-29 07:00 | NUR ---
BEDSIDE SHIFT REPORT FROM NIGHT RN. PT DENIES NEEDS AT THIS TIME.
--- NOTE | 2018-12-29 07:04 | NUR ---
REPORT GIVEN TO THE ONCOMING NURSE.
[2018-12-29] MEDS: AZITHROMYCIN 250 MG TAB PO SCH (08:56)
[2018-12-29] MEDS: CARVEDILOL 12.5 MG TAB PO SCH ×2 (08:56→18:17)
[2018-12-29] MEDS: ENOXAPARIN INJ 80 MG/0.8 ML SYR SC SCH (08:59)
[2018-12-29] MEDS: BALSAM PERU/CASTOR OIL 5 GM OINT...G. TP SCH (09:06)
[2018-12-29 09:22] LABS: BASOPHILS % 0.1 % (0.0-1.0); HEMATOCRIT 38.6 % (38.2-49.6); HEMOGLOBIN 12.8 g/dL (14.0-18.0); LYMPHOCYTES # (AUTO) 0.9 (1.0-3.2); LYMPHOCYTES % 6.3 % (18.0-39.1); MEAN CORPUSCULAR HEMOGLOBIN 33.1 pg (28-32); MEAN CORPUSCULAR HGB CONC 33.2 g/dL (31-35); MEAN CORPUSCULAR VOLUME 99.7 fL (81-99); MONOCYTES # (AUTO) 0.7 (0.2-0.8); NEUTROPHILS # (AUTO) 12.4 (2.1-6.9); PLATELET COUNT 154 x10e3/uL (140-360); RED BLOOD COUNT 3.87 x10e6/uL (4.3-5.7); RED CELL DISTRIBUTION WIDTH 21.2 % (11.7-14.4)
[2018-12-29 09:38] LABS: ANION GAP 19.4 mmol/L (8-16); CALCIUM 9.5 mg/dL (8.4-10.2); CREATININE, SERUM 1.56 mg/dL (0.72-1.25); POTASSIUM 5.4 mmol/L (3.5-5.1)
[2018-12-29] MEDS: FUROSEMIDE INJ 10 MG/ML 4 ML VIAL IV SCH ×2 (09:40→12:29)
[2018-12-29] MEDS: FOLIC ACID 1 MG TAB PO SCH (09:40)
--- NOTE | 2018-12-29 11:00 | NUR ---
PT OFF UNIT TO RADIOLOGY FOR CT SCAN
--- NOTE | 2018-12-29 11:48 | Diagnostic Imaging Report ---
Exam: Head CT without contrast History: Altered mental status head CT 08/03/2018 Comparison studies: None Technique: Axial images were obtained from the skull base to the vertex. Coronal and sagittal images reconstructed from the axial data. Dose modulation, iterative reconstruction, and/or weight based adjustment of the mA/kV was utilized to reduce the radiation dose to as low as reasonably achievable. Radiation dose: Total DLP: 832 mGy*cm. Estimated effective dose: DLP x 0.015 Intravenous contrast: None Findings: Scalp: No abnormalities. Bones: No fractures, blastic or lytic lesions. Brain sulci: Mildly prominent. Ventricles: Mild compensatory dilatation.. No hydrocephalus. Extra-axial spaces: No masses, no fluid collection. Parenchyma: No abnormal densities. No masses, acute hemorrhage, acute or chronic vascular insults. Couple of subtle hypodensities in the supratentorial white matter are nonspecific but most compatible with age-appropriate chronic microvascular ischemic changes. Sellar/suprasellar region: No abnormalities. Craniocervical junction: Patent foramen magnum. No Chiari one malformation. Incidental findings: Atherosclerotic calcifications in the carotid siphons. IMPRESSION: No acute intracranial abnormalities. No significant changes from the prior head CT of 08/04/2018. Chronic findings: 1. Mild generalized brain volume loss. 2. Minimal age-appropriate chronic microvascular ischemic changes. Signed by: Dr. Roosevelt Mirza M.D. on 12/29/2018 11:45 AM
--- NOTE | 2018-12-29 14:00 | NUR ---
NEW STAT LOCK PLACED TO LEFT THIGH FOR GUERIN CATH STABILIZATION.
[2018-12-29] MEDS ORDERED: APIXABAN 5 MG TABLET PO SCH (17:00)
[2018-12-29] MEDS: APIXAB 2.5 MG TABLET PO SCH (18:18)
--- NOTE | 2018-12-29 19:00 | NUR ---
patient received awake, alert, sitting up in bed. no c/o pain noted. respirations even and unlabored. 02/2l/nc in use. pm assessment complete. patient instructed to call for assistance when needed.
[2018-12-29] MEDS: TAMSULOSIN HCL 0.4 MG CAP PO SCH (20:15)
--- NOTE | 2018-12-29 21:00 | NUR ---
rea pulled out by patient. patient ambulatory to bathroom with walker with assistance. patient voids without difficulty. no c/o pain noted. small bm noted at this time. call placed to Dr. Pierre at this time re: replacing rea. awaiting return call.
--- NOTE | 2018-12-29 21:15 | NUR ---
return call received from Dr. Pierre. order received to leave rea catheter out.
[2018-12-30] VITALS (8 sets, daily range): BP systolic 93–105; BP diastolic 60–75
--- NOTE | 2018-12-30 02:30 | NUR ---
patient oob to bathroom with assistance. patient continues to void without difficulty. small soft bm noted at this time. patient back to bed with assistance. patient instructed to call for assistance when needed.
--- NOTE | 2018-12-30 03:30 | NUR ---
patient awake, lying quietly in bed. patient states, " i'm going home in a few minutes. The big man that works here said i could go home. " patient requires frequent redirection/reorientation.
--- NOTE | 2018-12-30 05:00 | NUR ---
patient oob to recliner with assistance. no c/o pain noted at this time.
[2018-12-30 06:52] LABS: BASOPHILS % 0.1 % (0.0-1.0); HEMATOCRIT 37.5 % (38.2-49.6); HEMOGLOBIN 12.3 g/dL (14.0-18.0); LYMPHOCYTES # (AUTO) 0.8 (1.0-3.2); LYMPHOCYTES % 6.4 % (18.0-39.1); MEAN CORPUSCULAR HEMOGLOBIN 32.5 pg (28-32); MEAN CORPUSCULAR HGB CONC 32.8 g/dL (31-35); MEAN CORPUSCULAR VOLUME 99.2 fL (81-99); MONOCYTES # (AUTO) 0.6 (0.2-0.8); MONOCYTES % 4.5 % (4.4-11.3); NEUTROPHILS # (AUTO) 10.9 (2.1-6.9); NEUTROPHILS % 88.4 % (38.7-80.0); PLATELET COUNT 134 x10e3/uL (140-360); RED BLOOD COUNT 3.78 x10e6/uL (4.3-5.7); RED CELL DISTRIBUTION WIDTH 21.5 % (11.7-14.4)
[2018-12-30] MEDS: ALBUTEROL/IPRATROPIUM 3 ML NEB NEB SCH ×3 (07:00→19:52)
[2018-12-30 07:12] LABS: ANION GAP 16.6 mmol/L (8-16); CALCIUM 9.2 mg/dL (8.4-10.2); CREATININE, SERUM 1.64 mg/dL (0.72-1.25); POTASSIUM 4.6 mmol/L (3.5-5.1)
[2018-12-30] MEDS ORDERED: MIDAZOLAM HCL 2 MG/2 ML VIAL ONE (07:18)
[2018-12-30] MEDS ORDERED: HEPARIN SOD (PORCINE) 1000 UNIT/ML 30ML ONE (07:18)
[2018-12-30] MEDS ORDERED: NITROGLYCERIN/D5W 200 MCG/ML 0 ML ONE (07:19)
[2018-12-30] MEDS ORDERED: LIDOCAINE HCL 2% LOCAL 20 ML VIAL ONE (07:19)
[2018-12-30] MEDS ORDERED: SODIUM CHLORIDE 0.9% 1000ML 0 ML ONE (07:19)
[2018-12-30] MEDS ORDERED: HEPARIN SOD/SOD CHLORIDE 0 ML ONE (07:19)
[2018-12-30] MEDS ORDERED: IOPAMIDOL 300MG/ML 100 ML INFUS..BTL IV ONE (07:19)
[2018-12-30] MEDS ORDERED: FENTANYL CITRATE/PF 100MCG/2 ML INJ ONE (07:19)
[2018-12-30] MEDS: FOLIC ACID 1 MG TAB PO SCH (08:42)
[2018-12-30] MEDS: BALSAM PERU/CASTOR OIL 5 GM OINT...G. TP SCH (08:42)
[2018-12-30] MEDS: APIXAB 2.5 MG TABLET PO SCH ×2 (08:42→16:39)
[2018-12-30] MEDS: AZITHROMYCIN 250 MG TAB PO SCH (08:42)
--- NOTE | 2018-12-30 08:42 | NUR ---
Pt received resting in bed. Alert and oriented x3. Oriented to staff and surroundings. Encouraged to press call solares if help needed. All meds given as ordered. Emotional support given. Call solares within reach. Will monitor
[2018-12-30] MEDS: CARVEDILOL 12.5 MG TAB PO SCH ×2 (09:00→17:00)
--- NOTE | 2018-12-30 11:57 | Diagnostic Imaging Report ---
EXAMINATION: CHEST SINGLE (PORTABLE) INDICATION: Pneumonia. COMPARISON: Chest radiograph 12/28/2018. FINDINGS: TUBES and LINES: Unchanged appearance of left-sided AICD device. LUNGS: Persistent opacity within the lingula and left lower lobe. Mild patchy opacity at the right lung base. Small pulmonary nodules described on comparison CT chest 12/24/2018 are not identified on this radiograph. PLEURA: Small bilateral pleural effusions. No evidence of pneumothorax. HEART AND MEDIASTINUM: The cardiomediastinal silhouette is unchanged. Status post CABG. BONES AND SOFT TISSUES: No acute osseous abnormality. Status post median sternotomy. UPPER ABDOMEN: No free air under the diaphragm. IMPRESSION: Similar appearance of nodular and left lower lung opacity, better characterized on CT chest from 12/24/2018. Small bilateral pleural effusions with patchy consolidation in the lower lungs, left greater than right. Signed by: Dr. Margarette Willingham MD on 12/30/2018 11:54 AM
--- NOTE | 2018-12-30 12:43 | Diagnostic Imaging Report ---
Exam: KUB-2 views Clinical History: Lower abdominal pain. Comparison: CT abdomen/pelvis 12/24/2018. Findings: Air-filled small and large bowel loops without evidence of bowel obstruction. There is no evidence of free intraperitoneal air. Calcified phleboliths in the pelvis. No acute osseous abnormality. Surgical clips project over the bilateral lower inguinal regions. Please refer to the same day chest radiograph for details of intrathoracic findings. Impression: No acute radiographic abnormality. Please refer to the same day chest radiograph for details of intrathoracic findings. Signed by: Dr. Margarette Willingham MD on 12/30/2018 12:39 PM
[2018-12-30] MEDS: CEFEPIME 1GM/NS 0.9% 50 ML 50 ML IV SCH ×2 (13:03→23:30)
--- NOTE | 2018-12-30 18:38 | NUR ---
patient received awake, alert, sitting up in recliner. no c/o pain noted. /nc in use. pm assessment complete. call solares placed within reach. patient instructed to call for assistance when needed.
--- NOTE | 2018-12-30 20:00 | NUR ---
patient back to bed with assistance. no c/o pain/discomfort noted.
[2018-12-30] MEDS: TAMSULOSIN HCL 0.4 MG CAP PO SCH (20:03)
--- NOTE | 2018-12-30 20:40 | NUR ---
patient oob to bathroom. patient voids without difficulty. bladder scan obtained at bedside with Michael BARNHART. Post void residual 40 mls at this time.
[2018-12-31] VITALS (7 sets, daily range): BP systolic 93–108; BP diastolic 56–79
[2018-12-31] MEDS: ALBUTEROL/IPRATROPIUM 3 ML NEB NEB SCH ×4 (01:00→18:47)
--- NOTE | 2018-12-31 02:00 | NUR ---
post void residual checked at bedside with bladder scan. 45 cc noted at this time. no c/o pain noted.
[2018-12-31 06:34] LABS: BASOPHILS % 0.1 % (0.0-1.0); HEMATOCRIT 37.1 % (38.2-49.6); HEMOGLOBIN 12.3 g/dL (14.0-18.0); LYMPHOCYTES # (AUTO) 0.7 (1.0-3.2); LYMPHOCYTES % 6.6 % (18.0-39.1); MEAN CORPUSCULAR HEMOGLOBIN 32.8 pg (28-32); MEAN CORPUSCULAR HGB CONC 33.2 g/dL (31-35); MEAN CORPUSCULAR VOLUME 98.9 fL (81-99); MONOCYTES # (AUTO) 0.6 (0.2-0.8); MONOCYTES % 5.6 % (4.4-11.3); NEUTROPHILS # (AUTO) 9.6 (2.1-6.9); NEUTROPHILS % 87.1 % (38.7-80.0); PLATELET COUNT 127 x10e3/uL (140-360); RED BLOOD COUNT 3.75 x10e6/uL (4.3-5.7); RED CELL DISTRIBUTION WIDTH 21.2 % (11.7-14.4)
[2018-12-31 06:55] LABS: ANION GAP 15.5 mmol/L (8-16); CALCIUM 9.3 mg/dL (8.4-10.2); CREATININE, SERUM 1.69 mg/dL (0.72-1.25); POTASSIUM 4.5 mmol/L (3.5-5.1)
[2018-12-31] MEDS ORDERED: FUROSEMIDE INJ 10 MG/ML 4 ML VIAL IV SCH (07:30)
[2018-12-31] MEDS: FOLIC ACID 1 MG TAB PO SCH (08:49)
[2018-12-31] MEDS: AZITHROMYCIN 250 MG TAB PO SCH (08:49)
[2018-12-31] MEDS: APIXAB 2.5 MG TABLET PO SCH ×2 (08:49→16:48)
[2018-12-31] MEDS: CEFEPIME 1GM/NS 0.9% 50 ML 50 ML IV SCH (08:49)
[2018-12-31] MEDS: BALSAM PERU/CASTOR OIL 5 GM OINT...G. TP SCH ×2 (08:49→20:20)
--- NOTE | 2018-12-31 08:50 | NUR ---
Pt received resting in recliner. Alert and oriented x3. Oriented to staff and surroundings. Encouraged to press call solares if help needed. Pt with O2 2L NC in place. Emotional support given. Will monitor
[2018-12-31] MEDS: CARVEDILOL 12.5 MG TAB PO SCH ×2 (09:00→16:50)
--- NOTE | 2018-12-31 10:20 | NUR ---
Visit made by the Spiritual Care Department Pastoral Visitor, Fredy Rehman. PV provided pastoral presence, hospitality, and supportive listening. Pastoral Visitor informed pt/family of the scope of Geographic Information System Analyst Services and availability. IVONNE SHEFFIELD Quality Control Supervisor Spiritual Care Department O: [phone] Pager: [phone] ([phone] number calling from)
[2018-12-31] MEDS ORDERED: CEFTAZIDIME 1 GM VIAL IV SCH (13:30)
[2018-12-31] MEDS ORDERED: CEFTAZIDIME SOD 1 GM/NS 50ML 50 ML IV SCH (14:00)
--- NOTE | 2018-12-31 19:00 | NUR ---
Patient visited in room during nursing rounds. Patient alert and oriented x2-3 (i.e. patient tends to forget recent events or memory). Patient on 1500 ml fluid restriction. Patient encouraged to urinate using urinal of possible. Pt aware if pt unable to urinate (urinary retention), cudae catheter will be inserted as per order from Dr. Gus Saunders. Bed alarm active. Call solares within reach.
[2018-12-31] MEDS: TAMSULOSIN HCL 0.4 MG CAP PO SCH (20:12)
--- NOTE | 2018-12-31 20:20 | NUR ---
Dressing changed (using 4x4 gauze, kerlix and tape) on left lower leg wound (skin tear).
--- NOTE | 2018-12-31 22:10 | NUR ---
Patient complained has the urge to urinate but unable to urinate on the urinal. Bladder scan performed and pt has >200ml in bladder. Plan is to insert 18fr cudae catheter as per MD (Dr. Saunders) order. Patient aware and agreed to the plan.
--- NOTE | 2018-12-31 22:20 | NUR ---
After giving patient education, 18 albanian Cudae Catheter was inserted (with sterile technique). 350ml bright yellow urine collected in rea bag. Pt states he feels much better.
[2019-01-01] VITALS (7 sets, daily range): BP systolic 95–105; BP diastolic 57–64
[2019-01-01] MEDS: ALBUTEROL/IPRATROPIUM 3 ML NEB NEB SCH ×4 (01:00→19:25)
[2019-01-01] MEDS: CEFTAZIDIME SOD 1 GM/NS 50ML 50 ML IV SCH ×2 (04:00→16:49)
--- NOTE | 2019-01-01 06:00 | NUR ---
Patient given a bed bath. Pt tolerated bath well.
[2019-01-01] MEDS: FOLIC ACID 1 MG TAB PO SCH (08:26)
[2019-01-01] MEDS: CARVEDILOL 12.5 MG TAB PO SCH ×2 (08:26→12:04)
[2019-01-01] MEDS: APIXAB 2.5 MG TABLET PO SCH ×2 (08:26→16:49)
--- NOTE | 2019-01-01 08:26 | NUR ---
Pt received resting in bed. All meds given as ordered. Emotional support given. Call solares within reach. Will monitor
--- NOTE | 2019-01-01 19:00 | NUR ---
Patient visited in room during nursing rounds. Patient alert and oriented x2-3 (i.e. patient tends to forget recent events or memory). Patient on 1500 ml fluid restriction. Coude catheter in place. Condition stable. Pt on 2L NC. Bed alarm active. Call solares within reach.
--- NOTE | 2019-01-01 20:32 | NUR ---
Attempted to call and left voice message for Dr. Pierre to inform of patient's frequent attempts to get up and out of bed and quite agitated and to possibly obtain med order or sitter order. Awaiting on MD call back.
[2019-01-01] MEDS: TAMSULOSIN HCL 0.4 MG CAP PO SCH (20:46)
--- NOTE | 2019-01-01 22:30 | NUR ---
Patient got up and appear quite confused. Pt re-oriented and pt requested to stay at nurses' station. Pt sat on wheelchair with 2L NC connected. Patient ate snacks and drank a cup of decaffeinated coffee. No sign of agitation from patient.
--- NOTE | 2019-01-01 23:50 | NUR ---
Pt escorted back in bed. Pt in stable condition. Bed alarm active. Call solares within reach.
[2019-01-02] VITALS (9 sets, daily range): BP systolic 85–108; BP diastolic 58–66
[2019-01-02] MEDS: ALBUTEROL/IPRATROPIUM 3 ML NEB NEB SCH ×4 (00:45→19:00)
[2019-01-02] MEDS: CEFTAZIDIME SOD 1 GM/NS 50ML 50 ML IV SCH ×2 (04:00→16:00)
--- NOTE | 2019-01-02 05:00 | NUR ---
Patient attempting to get up and out bed without calling. Bed alarm active. Pt having intermittent confusion but pleasantly follows commands. Patient re-oriented back to reality. Patient resting comfortably in bed now.
--- NOTE | 2019-01-02 07:10 | NUR ---
RECEIVED PATIENT RESTING IN BED. NO ACUTE DISTRESS NOTED. CALL LIGHT WITHIN REACH. BED IN THE LOWEST POSITION. BED ALARM ON.
[2019-01-02] MEDS: FOLIC ACID 1 MG TAB PO SCH (08:35)
[2019-01-02] MEDS: CARVEDILOL 12.5 MG TAB PO SCH ×2 (08:35→17:00)
[2019-01-02] MEDS: BALSAM PERU/CASTOR OIL 5 GM OINT...G. TP SCH (08:35)
[2019-01-02] MEDS: APIXAB 2.5 MG TABLET PO SCH ×2 (08:35→17:02)
--- NOTE | 2019-01-02 18:11 | NUR ---
Follow-up Note RD Recommendation for Physician: - Continue current diet as ordered Plan of Care: RD following, monitoring for tolerance and adequacy Nutrition reason for involvement: Follow up Primary Diagnose(s): CHF PMH: Coronary artery disease with previous coronary artery bypass graft surgery. Carotid disease with left carotid endarterectomy. Atrial fibrillation, anticoagulant therapy. Hypertension, dyslipidemia, progressive decline, and congestive heart failure, systolic. Ht: 67in Wt: 187lb; 177lb BMI: 29.3kg/m2 IBW: 148lb RD Assessment: (01/02) Visited pt in the room. No lab since 12/31. Pending placement. Pt reported fair appetite with 50-75% recorded PO intake. No GI complains noted. Will continue to monitor and follow. (12/26) Chart reviewed. Labs and meds reviewed. 78yo M, who was admitted for SOB. Currently on Lasix and 1500mL fluids restriction. 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 Pt denied swallowing problems and nausea/vomiting. Pt reported chewing difficulty due to poor fitting denture. RD downgraded diet texture to mechanical soft. Obtained diet preferences. Will continue to monitor and follow. Current Diet: cardiac diet Malnutrition Evaluation (12/26/2018) The patient does not meet criteria for a specified degree of malnutrition at this time. Will re-evaluate at follow-up as appropriate. Diet Education Needs Assessment: Diet education not indicated. Nutrition Care Level: low Signed: Tressa Yang, , RD, LD
--- NOTE | 2019-01-02 19:04 | NUR ---
REPORT GIVEN TO ONCOMING NURSE, PATIENT IS RESTING IN BED. NO ACUTE DISTRESS NOTED, RESPIRATIONS EVEN AND UNLABORED. CALL LIGHT WITHIN REACH. BED IN THE LOWEST POSITION. BED ALARM ON.
--- NOTE | 2019-01-02 19:16 | NUR ---
Report received and walking rounds complete. Pt resting in bed and in no apparent distress. All safety measures ensured.
[2019-01-02] MEDS: TAMSULOSIN HCL 0.4 MG CAP PO SCH (21:45)
[2019-01-03] VITALS (10 sets, daily range): BP systolic 90–111; BP diastolic 61–67
[2019-01-03] MEDS: ALBUTEROL/IPRATROPIUM 3 ML NEB NEB SCH ×2 (00:30→09:00)
[2019-01-03] MEDS: CEFTAZIDIME SOD 1 GM/NS 50ML 50 ML IV SCH ×2 (04:06→16:18)
--- NOTE | 2019-01-03 06:50 | NUR ---
RECEIVED PATIENT RESTING IN BED, NO ACUTE DISTRESS NOTED. CALL LIGHT WITHIN REACH. BED IN THE LOWEST POSITION. BED ALARM ON.
--- NOTE | 2019-01-03 06:55 | NUR ---
Report given to oncoming nurse
[2019-01-03] MEDS ORDERED: LEVALBUTEROL HCL SOLN NEBU 0.63 MG/3 ML NEB INH PRN (09:00)
[2019-01-03] MEDS: BALSAM PERU/CASTOR OIL 5 GM OINT...G. TP SCH (09:02)
[2019-01-03] MEDS: CARVEDILOL 12.5 MG TAB PO SCH ×2 (09:02→16:18)
[2019-01-03] MEDS: APIXAB 2.5 MG TABLET PO SCH ×2 (09:02→16:18)
[2019-01-03] MEDS: FOLIC ACID 1 MG TAB PO SCH (09:02)
[2019-01-03 09:34] LABS: BASOPHILS % 0.2 % (0.0-1.0); EOSINOPHILS % 0.1 % (0.0-6.0); HEMATOCRIT 37.6 % (38.2-49.6); HEMOGLOBIN 13.1 g/dL (14.0-18.0); LYMPHOCYTES # (AUTO) 0.8 (1.0-3.2); MEAN CORPUSCULAR HEMOGLOBIN 33.7 pg (28-32); MEAN CORPUSCULAR HGB CONC 34.8 g/dL (31-35); MEAN CORPUSCULAR VOLUME 96.7 fL (81-99); MONOCYTES # (AUTO) 0.7 (0.2-0.8); MONOCYTES % 5.6 % (4.4-11.3); NEUTROPHILS # (AUTO) 11.2 (2.1-6.9); NEUTROPHILS % 87.6 % (38.7-80.0); PLATELET COUNT 118 x10e3/uL (140-360); RED BLOOD COUNT 3.89 x10e6/uL (4.3-5.7); RED CELL DISTRIBUTION WIDTH 21.1 % (11.7-14.4)
[2019-01-03 10:44] LABS: ANION GAP 13.9 mmol/L (8-16); CALCIUM 9.2 mg/dL (8.4-10.2); CREATININE, SERUM 1.44 mg/dL (0.72-1.25); POTASSIUM 3.9 mmol/L (3.5-5.1)
[2019-01-03] MEDS: LEVALBUTEROL HCL SOLN NEBU 0.63 MG/3 ML NEB INH SCH ×2 (13:30→18:35)
[2019-01-03] MEDS: IPRATROPIUM BROMIDE 0.02% 2.5 ML NEB NEB SCH ×2 (13:30→18:35)
--- NOTE | 2019-01-03 14:30 | NUR ---
SPOKE WITH PATIENT WHOM WANTS TO GO HOE BUT IS CONFUSED, CALLED DAUGHTER AND SPOKE WITH HER EXPLAINED DIFFERENT OPTIONS OF PLACEMENTS, SHE IS IN AGREEMENT TO SPEAK WITH RASHAD WITH [facility] TO LOOK AT OPTIONS. VERBAL CONSENT GIVEN VIA PHONE. [facility] WILL LET SW KNOW OF PROGRESS.
--- NOTE | 2019-01-03 19:08 | NUR ---
REPORT GIVEN TO ONCOMING NURSE, WALKING ROUNDS DONE. PATIENT IS RESTING IN BED IN STABLE CONDITION, NO ACUTE DISTRESS NOTED, RESPIRATIONS EVEN AND UNLABORED. NO S/S OF PAIN NOTED. CALL LIGHT WITHIN REACH. BED IN THE LOWEST POSITION. BED ALARM ON.
--- NOTE | 2019-01-03 19:15 | NUR ---
patient received awake, alert, lying quietly in bed. no c/o pain noted. 02/2l/nc in use. respirations even and unlabored. pm assessment complete. call solares placed within reach. patient instructed to call for assistance when needed.
[2019-01-03] MEDS: TAMSULOSIN HCL 0.4 MG CAP PO SCH (20:16)
--- NOTE | 2019-01-04 | NUR ---
patient refuses to stay in bed. patient oob to wheelchair with assistance and placed at the nurses station.
[2019-01-04] MEDS: LEVALBUTEROL HCL SOLN NEBU 0.63 MG/3 ML NEB INH SCH ×4 (02:10→19:30)
[2019-01-04] MEDS: IPRATROPIUM BROMIDE 0.02% 2.5 ML NEB NEB SCH ×4 (02:10→19:30)
--- NOTE | 2019-01-04 03:00 | NUR ---
bath/skin care provided. patient back to bed with assistance. patient appears to be resting quietly.
[2019-01-04 04:35] VITALS: BP 101/66
[2019-01-04] MEDS: CEFTAZIDIME SOD 1 GM/NS 50ML 50 ML IV SCH ×2 (06:00→17:26)
--- NOTE | 2019-01-04 06:00 | NUR ---
0400 dose of fortaz not available at scheduled time. pharmacy notified and fortaz 1 gm ivpb delivered to floor and given at this time.
[2019-01-04 08:00] VITALS: BP 98/61
[2019-01-04] MEDS ORDERED: METOPROLOL TARTRATE INJ 1 MG/ML VIAL IV PRN (08:15)
[2019-01-04] MEDS ORDERED: DIGOXIN INJ 0.25 MG/ML 2 ML AMP IV NR (08:30)
[2019-01-04 08:44] VITALS: BP 98/61
--- NOTE | 2019-01-04 08:44 | NUR ---
Pt received resting in bed. Alert and oriented x2 but confused. Saline lock #20 inserted into right forearm. Oriented to staff and surroundings. Encouraged to press call solares if help needed. All meds given as ordered. Emotional support given. Call solares within reach. Will monitor
[2019-01-04] MEDS: CARVEDILOL 12.5 MG TAB PO SCH ×2 (08:46→17:26)
[2019-01-04] MEDS: BALSAM PERU/CASTOR OIL 5 GM OINT...G. TP SCH (08:46)
[2019-01-04] MEDS: FOLIC ACID 1 MG TAB PO SCH (08:46)
[2019-01-04] MEDS: APIXAB 2.5 MG TABLET PO SCH ×2 (08:46→17:26)
[2019-01-04 12:00] VITALS: BP 94/69
--- NOTE | 2019-01-04 12:53 | NUR ---
SPOKEW ITH PT BEDSIDE ABOUT SNF, SIGNED CHOICE FOR [facility]. FAXED CLINICALS
[2019-01-04 16:00] VITALS: BP 100/63
--- NOTE | 2019-01-04 19:00 | NUR ---
Patient visited in room during nursing rounds. Patient alert and oriented x1-2 (i.e. patient tends to forget recent events or memory). Patient on 1500 ml fluid restriction. Patient with coude catheter in place draining clear dark yellow urine. Bed alarm active. Call solares within reach.
[2019-01-04 19:20] VITALS: BP 82/58
[2019-01-04] MEDS: TAMSULOSIN HCL 0.4 MG CAP PO SCH (20:53)
[2019-01-04] MEDS: MAGNESIUM/ALUMINUM/SIMETHICONE 30 ML UDC PO PRN (22:44)
[2019-01-04] MEDS ORDERED: ONDANSETRON HCL INJ 2MG/ML 2ML 2 MG/ML VIAL IV PRN (23:30)
[2019-01-05] VITALS (7 sets, daily range): BP systolic 81–115; BP diastolic 60–71
--- NOTE | 2019-01-05 00:40 | NUR ---
Called and spoke with Dr. Pierre over the phone. Informed him patient still having abdominal discomfort with frequent vomiting of dark brown vomitus approximately 1L in total amount. Dr. Pierre ordered to place NG tube and perform STAT KUB.
[2019-01-05] MEDS: IPRATROPIUM BROMIDE 0.02% 2.5 ML NEB NEB SCH ×4 (01:00→19:35)
[2019-01-05] MEDS: LEVALBUTEROL HCL SOLN NEBU 0.63 MG/3 ML NEB INH SCH ×4 (01:00→19:35)
--- NOTE | 2019-01-05 01:10 | NUR ---
Four attempts of NG tube insertion (2 tries per nare) and still unsuccessful. Unable to insert NG past sinus area. Patient complains of discomfort and unable to tolerate NG insertion. STAT KUB to be performed and plan to notify Dr. Pierre.
--- NOTE | 2019-01-05 01:30 | NUR ---
STAT KUB in progress. Patient appear comfortable and has not vomited yet.
--- NOTE | 2019-01-05 02:02 | Diagnostic Imaging Report ---
Exam: Abdominal film Clinical History: Abdominal pain, vomiting Comparison: None. DISCUSSION: Frontal view of the abdomen shows a nonobstructive bowel gas pattern with mild amount of retained stool. No dilated, air-filled loops of bowel. No abnormal calcifications. No acute bone abnormality. IMPRESSION: 1. Nonobstructive bowel gas pattern. Signed by: Dr. Dominic Conti M.D. on 01/05/2019 1:59 AM
--- NOTE | 2019-01-05 03:00 | NUR ---
Patient given a bathroom bath. No vomiting episodes and pt denies any discomfort at this time.
[2019-01-05] MEDS: CEFTAZIDIME SOD 1 GM/NS 50ML 50 ML IV SCH ×2 (04:10→16:29)
[2019-01-05 06:11] LABS: BASOPHILS % 0.1 % (0.0-1.0); EOSINOPHILS % 0.1 % (0.0-6.0); HEMOGLOBIN 13.2 g/dL (14.0-18.0); LYMPHOCYTES # (AUTO) 0.6 (1.0-3.2); LYMPHOCYTES % 4.5 % (18.0-39.1); MEAN CORPUSCULAR HGB CONC 33.8 g/dL (31-35); MEAN CORPUSCULAR VOLUME 97.5 fL (81-99); MONOCYTES # (AUTO) 0.7 (0.2-0.8); NEUTROPHILS # (AUTO) 12.5 (2.1-6.9); NEUTROPHILS % 89.2 % (38.7-80.0); PLATELET COUNT 123 x10e3/uL (140-360); RED CELL DISTRIBUTION WIDTH 20.9 % (11.7-14.4)
[2019-01-05 06:32] LABS: ANION GAP 13.4 mmol/L (8-16); CALCIUM 9.4 mg/dL (8.4-10.2); CREATININE, SERUM 1.55 mg/dL (0.72-1.25); POTASSIUM 4.4 mmol/L (3.5-5.1)
--- NOTE | 2019-01-05 07:02 | NUR ---
Left voice message for Dr. Pierre to inform that NG tube insertion was unsuccessful and that KUB results showed nonobstructive bowel gas pattern. Information passed on to day nurseMirtha.
[2019-01-05] MEDS: FOLIC ACID 1 MG TAB PO SCH (08:13)
[2019-01-05] MEDS: APIXAB 2.5 MG TABLET PO SCH (08:13)
--- NOTE | 2019-01-05 08:13 | NUR ---
Pt received resting in bed. Alert and oriented x2, pleasantly confused. Pt only drank one bottle of Glucerna, Pt did not vomit. Emotional support given. Call solares within reach. Will monitor
[2019-01-05] MEDS: BALSAM PERU/CASTOR OIL 5 GM OINT...G. TP SCH (09:24)
[2019-01-05] MEDS ORDERED: BISACODYL 10 MG SUPP PR ONE (09:30)
--- NOTE | 2019-01-05 13:00 | NUR ---
BP 81/63 hr 105 with BP machine at noon. BP 80/50 manually, and verified by two nurses. Remedios CAR AUDIO INSTALLER for Dr. Mendoza called, and stated to discontinue Coreg. Emotional support given. Will follow up BP in 1-2 hours as directed by CAR AUDIO INSTALLER
--- NOTE | 2019-01-05 14:28 | NUR ---
FAXED PT NOTES AND PATH REPORT TO [facility]
--- NOTE | 2019-01-05 16:10 | NUR ---
BP 97/71 hr 93 T 96F R 22 Sat 96% on room air. Emotional support given. Labs drawn to r/o sepsis. Will monitor
[2019-01-05] MEDS ORDERED: CARVEDILOL 3.125 MG TAB PO SCH (17:00)
[2019-01-05] MEDS ORDERED: SODIUM CHLORIDE 0.9% 250ML 250 ML IV PRN (19:15)
--- NOTE | 2019-01-05 19:18 | NUR ---
Lactic acid & Ammonia level within normal limit. Call solares within reach. No bowel movement noted. Endorsed to next shift
[2019-01-05] MEDS: TAMSULOSIN HCL 0.4 MG CAP PO SCH (20:50)
[2019-01-06] VITALS (9 sets, daily range): BP systolic 85–119; BP diastolic 55–69
[2019-01-06] MEDS: IPRATROPIUM BROMIDE 0.02% 2.5 ML NEB NEB SCH ×4 (01:00→19:30)
[2019-01-06] MEDS: LEVALBUTEROL HCL SOLN NEBU 0.63 MG/3 ML NEB INH SCH ×4 (01:00→19:30)
[2019-01-06] MEDS: CEFTAZIDIME SOD 1 GM/NS 50ML 50 ML IV SCH ×2 (04:26→16:51)
[2019-01-06 06:19] LABS: BASOPHILS % 0.1 % (0.0-1.0); HEMATOCRIT 38.7 % (38.2-49.6); HEMOGLOBIN 13.1 g/dL (14.0-18.0); LYMPHOCYTES # (AUTO) 0.8 (1.0-3.2); MEAN CORPUSCULAR HEMOGLOBIN 33.1 pg (28-32); MEAN CORPUSCULAR HGB CONC 33.9 g/dL (31-35); MEAN CORPUSCULAR VOLUME 97.7 fL (81-99); MONOCYTES # (AUTO) 0.7 (0.2-0.8); MONOCYTES % 4.6 % (4.4-11.3); NEUTROPHILS # (AUTO) 13.9 (2.1-6.9); NEUTROPHILS % 89.5 % (38.7-80.0); PLATELET COUNT 130 x10e3/uL (140-360); RED BLOOD COUNT 3.96 x10e6/uL (4.3-5.7); RED CELL DISTRIBUTION WIDTH 21.4 % (11.7-14.4)
[2019-01-06 06:44] LABS: ANION GAP 14.4 mmol/L (8-16); CALCIUM 9.2 mg/dL (8.4-10.2); CREATININE, SERUM 1.71 mg/dL (0.72-1.25); MAGNESIUM 2.6 MG/DL (1.3-2.1); POTASSIUM 4.4 mmol/L (3.5-5.1)
[2019-01-06 07:15] LABS: ANISOCYTOSIS SLIGHT; BAND NEUTROPHILS % (MANUAL) 1 %; LYMPHOCYTES % (MANUAL) 5 % (19-48); MONOCYTES % (MANUAL) 5 % (3.4-9.0); NEUTROPHILS % (MANUAL) 89 % (40-74); PLATELET ESTIMATE SLIGHTLY DECREASED; PLATELET MORPHOLOGY COMMENT NORMAL
[2019-01-06 07:16] LABS: RBC MORPHOLOGY COMMENT ABNORMAL
[2019-01-06] MEDS: BALSAM PERU/CASTOR OIL 5 GM OINT...G. TP SCH (07:50)
--- NOTE | 2019-01-06 07:50 | NUR ---
PATIENT IS AWAKE AND IN STABLE CONDITION WITH NO S/S OF RESPIRATORY DISTRESS. NO PAIN VOICED. TELEMETRY REAPPLIED. O2 APPLIED. GUERIN INTACT AND DRAINING. BED ALARM ON. CALL LIGHT IS WITHIN REACH, PATIENT INSTRUCTED TO CALL FOR ASSISTANCE NEEDED.
[2019-01-06] MEDS: FOLIC ACID 1 MG TAB PO SCH (09:04)
--- NOTE | 2019-01-06 09:57 | NUR ---
F/U PHONE CALL TO [facility] IN ADMITTING SHE STATES THEY HAVE NOT SUBMITTED TO INSURANCE YET BECAUSE THEY WEREN'T SURE OF "THE PLAN" PATH REPORT YESTERDAY SHOWS CANCER OF LUNG EXPLAINED TO GABRIELA THAT SNF ([facility] IS THE PLAN GABRIELA AGREES TO FAX CLINICAL AND EXPEDITE AUTH TODAY 01/06 10 AM
--- NOTE | 2019-01-06 19:15 | NUR ---
patient received awake, alert, confused to place and time. no c/o pain noted at this time. respirations even and unlabored. 02/2l/nc in use. pm assessment complete. patient instructed to call for assistance when needed.
[2019-01-06] MEDS: TAMSULOSIN HCL 0.4 MG CAP PO SCH (20:32)
[2019-01-07] MEDS: IPRATROPIUM BROMIDE 0.02% 2.5 ML NEB NEB SCH ×4 (00:15→19:10)
[2019-01-07] MEDS: LEVALBUTEROL HCL SOLN NEBU 0.63 MG/3 ML NEB INH SCH ×4 (00:15→19:10)
[2019-01-07] MEDS: CEFTAZIDIME SOD 1 GM/NS 50ML 50 ML IV SCH ×2 (03:47→15:03)
[2019-01-07 05:03] VITALS: BP 108/72
--- NOTE | 2019-01-07 06:15 | Diagnostic Imaging Report ---
Examination: Single AP view of the chest. COMPARISON: December 30, 2018 INDICATION: Shortness of breath DISCUSSION: Lines/tubes: Sternotomy wires. Multi lead cardiac device. Lungs: Central venous congestion. Left lower lung airspace consolidation and mild right lower lung consolidation. Pleura: Bilateral effusions. Heart and mediastinum: Cardiomegaly. Bones and soft tissues: No acute bony abnormalities. Degenerative changes in the thoracic spine. IMPRESSION: Cardiomegaly with central venous congestion. Stable left lower lung consolidation. Signed by: Dr. Dominic Conti M.D. on 01/07/2019 6:12 AM
--- NOTE | 2019-01-07 07:25 | NUR ---
PATIENT IS CONFUSED; PATIENT IN STABLE CONDITION WITH NO S/S OF RESPIRATORY DISTRESS. NO PAIN VOICED. TELEMETRY REAPPLIED. O2 APPLIED. GUERIN INTACT AND DRAINING. BED ALARM ON. CALL LIGHT IS WITHIN REACH-PATIENT INSTRUCTED TO CALL FOR ASSISTANCE NEEDED.
[2019-01-07 08:00] VITALS: BP 100/67
[2019-01-07] MEDS: BALSAM PERU/CASTOR OIL 5 GM OINT...G. TP SCH (08:41)
[2019-01-07] MEDS: FOLIC ACID 1 MG TAB PO SCH (08:44)
[2019-01-07 12:30] VITALS: BP 128/77
[2019-01-07 16:22] VITALS: BP 101/57
--- NOTE | 2019-01-07 18:51 | NUR ---
PATIENT IS RESTING IN BED- PATIENT IN STABLE CONDITION WITH NO S/S OF RESPIRATORY DISTRESS. NO PAIN VOICED. GUERIN INTACT AND DRAINING. BED ALARM ON. CALL LIGHT IS WITHIN REACH-PATIENT INSTRUCTED TO CALL FOR ASSISTANCE NEEDED. BEDSIDE REPORT GIVEN TO ONCOMING NURSE.
--- NOTE | 2019-01-07 18:56 | NUR ---
patient received awake, alert, lying quietly in bed. 02 off at this time per patient. 02 replaced at this time.patient repositioned for comfort. pm assessment complete. call solares placed within reach. patient instructed to call for assistance when needed. side rails up x 3 and bed alarm remains on for safety.
[2019-01-07 19:30] VITALS: BP 125/64
[2019-01-07 19:43] VITALS: BP 125/64
[2019-01-07] MEDS: TAMSULOSIN HCL 0.4 MG CAP PO SCH (20:45)
[2019-01-07] MEDS: BENZONATATE 100 MG CAP PO SCH (21:36)
[2019-01-08] VITALS (7 sets, daily range): BP systolic 81–117; BP diastolic 50–70
[2019-01-08] MEDS: LEVALBUTEROL HCL SOLN NEBU 0.63 MG/3 ML NEB INH SCH ×4 (00:10→20:20)
[2019-01-08] MEDS: IPRATROPIUM BROMIDE 0.02% 2.5 ML NEB NEB SCH ×4 (00:10→20:20)
--- NOTE | 2019-01-08 04:00 | NUR ---
scheduled 0400 fortaz 1 gm iv not available at this time. will notify pharmacy early am.
[2019-01-08] MEDS: BENZONATATE 100 MG CAP PO SCH (05:38)
[2019-01-08] MEDS: CEFTAZIDIME SOD 1 GM/NS 50ML 50 ML IV SCH (06:30)
[2019-01-08 06:42] LABS: BASOPHILS % 0.3 % (0.0-1.0); EOSINOPHILS # (AUTO) 0.1 (0.0-0.4); EOSINOPHILS % 0.4 % (0.0-6.0); HEMATOCRIT 43.1 % (38.2-49.6); HEMOGLOBIN 14.5 g/dL (14.0-18.0); LYMPHOCYTES # (AUTO) 0.7 (1.0-3.2); LYMPHOCYTES % 4.6 % (18.0-39.1); MEAN CORPUSCULAR HEMOGLOBIN 33.4 pg (28-32); MEAN CORPUSCULAR HGB CONC 33.6 g/dL (31-35); MEAN CORPUSCULAR VOLUME 99.3 fL (81-99); MONOCYTES # (AUTO) 0.6 (0.2-0.8); MONOCYTES % 3.8 % (4.4-11.3); NEUTROPHILS # (AUTO) 14.4 (2.1-6.9); NEUTROPHILS % 90.4 % (38.7-80.0); PLATELET COUNT 112 x10e3/uL (140-360); RED BLOOD COUNT 4.34 x10e6/uL (4.3-5.7); RED CELL DISTRIBUTION WIDTH 22.4 % (11.7-14.4)
[2019-01-08] MEDS: BALSAM PERU/CASTOR OIL 5 GM OINT...G. TP SCH (08:10)
[2019-01-08] MEDS: FOLIC ACID 1 MG TAB PO SCH (08:10)
[2019-01-08 08:17] LABS: ALBUMIN 2.3 g/dL (3.5-5.0); ALBUMIN/GLOBULIN RATIO 0.7 (0.8-2.0); ANION GAP 19.1 mmol/L (8-16); CALCIUM 9.3 mg/dL (8.4-10.2); CREATININE, SERUM 1.99 mg/dL (0.72-1.25); POTASSIUM 4.1 mmol/L (3.5-5.1)
--- NOTE | 2019-01-08 08:19 | NUR ---
CALLED AND SPOKE WITH DR. TORRES TO RECEIVE ORDER FOR SITTER FOR THE PATIENT. ORDER RECEIVED. PATIENT CONTINUES TO REMOVE 02- PATIENT SATURATIONS ARE DECREASING TO THE 70'S D/T HIM REMOVING THE O2.
[2019-01-08] MEDS ORDERED: FUROSEMIDE INJ 10 MG/ML 4 ML VIAL IV NR (08:45)
[2019-01-08] MEDS ORDERED: FUROSEMIDE INJ 10 MG/ML 4 ML VIAL ONE (08:50)
--- NOTE | 2019-01-08 08:57 | NUR ---
CALLED SPOKE WITH DR. TORRES ON PATIENT'S CURRENT STATUS AND PATINET BEING ON BIPAP. CHARGE NURSE IN THE ROOM WITH PATIENT. TELEMETRY APPLIED. PATIENT CURRENT 02 SAT IS 100% ON BIPAP. ORDER RECEIVED TO TRANSFER PATIENT TO ICU AND FOR IV LASIX ONE TIME. CALLED AND SPOKE WITH THE PATIENT'S DAUGHTER, MICK, REGARDING THE PATIENT'S CODE STATUS- DAUGHTER NEEDS TO SPEAK WITH SIBLING AND WILL CALL BACK WITH A DECISION REGARDING CODE STATUS.
[2019-01-08] MEDS ORDERED: MEGACE 400MG/ 10ML CUP PO SCH (09:00)
[2019-01-08] MEDS: MORPHINE SULFATE INJ 4 MG/ML INJ 1ML IV SCH ×4 (10:36→22:00)
--- NOTE | 2019-01-08 10:50 | NUR ---
Received Hospice order from Dr. Pierre. Met with family and they are aware and agree. They stated they have recently spoken with Zelalem Cabral with [facility], and they want her consulted. Signed choice letter. Copy to daughter Aubree Liz [phone], and original placed in chart. Updated Rosita BARNHART, pt nurse. Notified Zelalem Cabral. She called CM back after speaking with daughter, Aubree. She will meet with daughter tomorrow, and see if she can get pt to meet inpatient at [facility]. Unable to do this today, as it is the weekend and no personal available for this at [facility]. Daughter will also look for pt bank statements in order to privately pay for room at [facility]. Zelalem to call Rosita BARNHART and update her from hospice standpoint.
[2019-01-08 13:12] LABS: LYMPHOCYTES % (MANUAL) 7 % (19-48); MONOCYTES % (MANUAL) 3 % (3.4-9.0); NEUTROPHILS % (MANUAL) 90 % (40-74)
[2019-01-08 13:13] LABS: PLATELET ESTIMATE SLIGHTLY DECREASED; PLATELET MORPHOLOGY COMMENT NORMAL
[2019-01-08 13:14] LABS: RBC MORPHOLOGY COMMENT ABNORMAL
--- NOTE | 2019-01-08 14:15 | NUR ---
PATIENT'S DAUGHTERS (MICK AND CECILIO) REFUSED THE SCHEDULE MORPHINE AT THIS TIME. WILL CONTINUE TO ASSESS PATIENT'S COMFORT. PATIENT IS IN STABLE CONDITION- BIPAP AND TELEMETRY APPLIED.
--- NOTE | 2019-01-08 16:45 | NUR ---
Referred by RN. Visit made by the Spiritual Care Department Pastoral Visitor, Fredy Rehman. PV provided pastoral presence, hospitality, and supportive listening. Pt's family at bedside. Pastoral Visitor informed family of the scope of Toe Pounder Services and availability. IVONNE SHEFFIELD [facility] Spiritual Care Department O: [phone] Pager: [phone] ([phone] number calling from)
--- NOTE | 2019-01-08 19:39 | NUR ---
PATIENT IS IN STABLE CONDITION WITH NO S/S OF RESPIRATORY DISTRESS. NO PAIN INDICATED. TELEMETRY AND CONTINUOUS PULSE OX APPLIED. BIPAP APPLIED. FAMILY MEMBERS PRESENT IN ROOM. CALL LIGHT IS WITHIN REACH, FAMILY MEMBERS INSTRUCTED TO CALL FOR ASSISTANCE NEEDED. BEDSIDE REPORT GIVEN TO ONCOMING NURSE.
--- NOTE | 2019-01-08 20:04 | NUR ---
RECEIVED PT IN BED AOX1 .FAMILY AT THE BEDSIDE RESPIRATIONS ARE EVEN AND UNLABORED .PT IS CONTINUOS C-PAP.CALL LIGHT WITH IN REACH CONTINUE TO MONITOR
[2019-01-09] VITALS: BP 85/53
[2019-01-09] MEDS: IPRATROPIUM BROMIDE 0.02% 2.5 ML NEB NEB SCH ×3 (01:30→13:00)
[2019-01-09] MEDS: LEVALBUTEROL HCL SOLN NEBU 0.63 MG/3 ML NEB INH SCH ×3 (01:30→13:00)
[2019-01-09] MEDS: MORPHINE SULFATE INJ 4 MG/ML INJ 1ML IV SCH ×3 (02:00→10:00)
[2019-01-09 05:00] VITALS: BP 89/53
--- NOTE | 2019-01-09 06:10 | NUR ---
PATIENT IS RESTING IN BED. NO ACUTE DISTRESS NOTED, RESPIRATIONS EVEN AND UNLABORED. CALL LIGHT WITHIN REACH. BED IN THE LOWEST POSITION. BED ALARM ON
--- NOTE | 2019-01-09 07:21 | NUR ---
REPORT GIVEN TO THE ONCOMING NURSE
[2019-01-09 08:00] VITALS: BP 125/67
[2019-01-09 08:30] VITALS: BP 125/67
[2019-01-09 11:56] VITALS: BP 94/57
--- NOTE | 2019-01-09 12:51 | NUR ---
Discontinuing skilled physical therapy services since patient is on hospice care. Thank you. Addendum: 01/09/19 at 1252 by Armaan lizama PT Amended: Links added.
[2019-01-09] MEDS: MORPHINE SULFATE INJ 4 MG/ML INJ 1ML IV PRN ×2 (13:02→16:58)
[2019-01-09] MEDS: LORAZEPAM INJ 2 MG/ML VIAL IV PRN ×2 (13:02→16:58)
--- NOTE | 2019-01-09 14:30 | NUR ---
Spoke with surgical sales representative from [employer] about having device turned off because pt is going on hospice. Received callback from Elinor with [employer] and states she will be out this afternoon to turn device off.
[2019-01-09 16:34] VITALS: BP 173/99
--- NOTE | 2019-01-09 16:42 | NUR ---
CM DIRECTOR SPOKE WITH SAMARIA/THANIA [facility] ([phone]). SHE STATES SHE HAS ARRANGED FOR AMBULANCE PICKUP AT 1630 FOR PATIENT TRANSPORT TO: [facility] [id number] [place] [address] SAMARIA/TIM STATES SHE HAS GIVEN MOT INFORMATION TO DORN/BEDSIDE NURSE. DO HAS CALLED REPORT TO [facility].
--- NOTE | 2019-01-09 17:04 | NUR ---
[facility]. Family is at the bedside at time of discharge.
== END 2019-01-09 17:05 | disposition hospice, inpatient (51) | DRG 166 ==
LOC: ER 01:14 → ERHOLD 05:46 → MED/SURG3 15:35
PROVIDERS: ADMIT Internal Medicine; ATTEND Internal Medicine
PROC: 5A09357 Assistance with Respiratory Ventilation, Less than 24 Consecutive Hours, Continuous Positive Airway Pressure (ICD-10-PCS; 2018-12-24)
PROC: 0BDG8ZX Extraction of Left Upper Lung Lobe, Via Natural or Artificial Opening Endoscopic, Diagnostic (ICD-10-PCS; 2018-12-28)
PROC: 0BB88ZX Excision of Left Upper Lobe Bronchus, Via Natural or Artificial Opening Endoscopic, Diagnostic (ICD-10-PCS; 2018-12-28)
PROC: 0BBG8ZX Excision of Left Upper Lung Lobe, Via Natural or Artificial Opening Endoscopic, Diagnostic (ICD-10-PCS; principal; 2018-12-28 10:30)
PROC: 5A09357 Assistance with Respiratory Ventilation, Less than 24 Consecutive Hours, Continuous Positive Airway Pressure (ICD-10-PCS; 2019-01-09)
DX: C34.12 Malignant neoplasm of upper lobe, left bronchus or lung (principal); I50.23 Acute on chronic systolic (congestive) heart failure; J18.9 Pneumonia, unspecified organism; J96.90 Respiratory failure, unspecified, unspecified whether with hypoxia or hypercapnia; I13.0 Hypertensive heart and chronic kidney disease with heart failure and stage 1 through stage 4 chronic kidney disease, or unspecified chronic kidney disease; E87.1 Hypo-osmolality and hyponatremia; N17.9 Acute kidney failure, unspecified; G93.40 Encephalopathy, unspecified; N18.3 Chronic kidney disease, stage 3 (moderate); F17.200 Nicotine dependence, unspecified, uncomplicated; I25.10 Atherosclerotic heart disease of native coronary artery without angina pectoris; I48.91 Unspecified atrial fibrillation; E78.5 Hyperlipidemia, unspecified; F10.20 Alcohol dependence, uncomplicated; K70.30 Alcoholic cirrhosis of liver without ascites; N40.1 Benign prostatic hyperplasia with lower urinary tract symptoms; R33.8 Other retention of urine; K80.80 Other cholelithiasis without obstruction; Z66 Do not resuscitate; Z51.5 Encounter for palliative care; K72.90 Hepatic failure, unspecified without coma; D69.6 Thrombocytopenia, unspecified; I73.9 Peripheral vascular disease, unspecified; I25.5 Ischemic cardiomyopathy; R53.81 Other malaise; Z95.810 Presence of automatic (implantable) cardiac defibrillator; I25.2 Old myocardial infarction; Z95.1 Presence of aortocoronary bypass graft; Z91.19 Patient's noncompliance with other medical treatment and regimen; Z87.19 Personal history of other diseases of the digestive system; Z83.3 Family history of diabetes mellitus; Z82.49 Family history of ischemic heart disease and other diseases of the circulatory system; Z81.1 Family history of alcohol abuse and dependence; Z79.01 Long term (current) use of anticoagulants
CPT/HCPCS: 31622; 36415; 36600; 51700; 70450; 71045; 71250; 74018; 74176; 80048; 80053; 81001; 82140; 82248; 82378; 82550; 82553; 82805; 82948; 83605; 83690; 83735; 83880; 84436; 84443; 84479; 84484; 85025; 85610; 85730; 87040; 87086; 87102; 87116; 87186; 87205; 87206; 87335; 88104; 88112; 88305; 88312; 88342; 93005; 93306; 93880; 93925; 93970; 94640; 94660; 97139; 99284; J0171; J0692; J0713; J1160; J1644; J1650; J1940; J2001; J2060; J2250; J2270; J2405; J7030; Q9967